=== PATIENT | female | born 1975 | race Caucasian/White ===

== ENCOUNTER 2016-11-27 11:10 | Inpatient (IN) | payer MEDICAID, OTHER ==
[2016-11-27] MEDS ORDERED: Charcoal ACTIVATED* 25 GM/120 ML BTL PO ONE (11:47)
[2016-11-27] MEDS ORDERED: NS 0.9% 1000 ML* 1,000 ML IV ONE (11:47)
--- NOTE | 2016-11-27 12:28 | RAD ---
Indication: Overdose. Single frontal view of the chest performed at 1202 hours was reviewed. Comparison is made with previous exam dated June 28, 2010. No mediastinal shift is noted. Heart is of normal size and configuration. Lung gallagher appear clear. IMPRESSION: NO ACTIVE CARDIOPULMONARY DISEASE IS NOTED.
[2016-11-27 12:50] LABS: Hematocrit 39 % (35-47); Mean Corpuscular HGB Conc 33 g/dl (31-36); Mean Corpuscular Hemoglobin 30 pg (27-31); Mean Corpuscular Volume 90 fL (80-97); Mean Platelet Volume 8 um3 (7.4-10.4); Red Blood Count 4.33 10^6/ul (4.0-5.4); Red Cell Distribution Width 15 % (10.5-15); White Blood Count 9.8 10^3/ul (3.5-10.8)
[2016-11-27 13:06] LABS: ALT 16 U/L (7-52); AST 19 U/L (13-39); Albumin 3.2 g/dL (3.2-5.2); Alkaline Phosphatase 46 U/L (34-104); Anion Gap 6 mmol/L (2-11); BUN/Creatinine Ratio 9.3 (8-20); Benzodiazepine Urine Screen None Detected (None Detect); Blood Urea Nitrogen 7 mg/dL (6-24); CO2 Carbon Dioxide 22 mmol/L (22-32); Calcium 8.6 mg/dL (8.6-10.3); Chloride 113 mmol/L (101-111); Creatine Kinase 37 U/L (10-223); EGFR African American 109.5 (>60); EGFR Non-African American 85.2 (>60); Globulin 3.7 g/dL (2-4); Glucose 105 mg/dL (70-100); Potassium 3.4 mmol/L (3.5-5.0); Sodium 141 mmol/L (133-145); Total Protein 6.9 g/dL (6.4-8.9)
[2016-11-27 13:07] LABS: Troponin I 0.01 ng/mL (<0.04)
[2016-11-27 13:16] LABS: Acetaminophen < 15 mcg/mL; Alcohol < 10 mg/dL (<10); Salicylate < 2.50 mg/dL (<30)
[2016-11-27 13:18] LABS: Urine Bilirubin Negative (Negative); Urine Glucose Negative (Negative); Urine Nitrite Negative (Negative)
[2016-11-27] MEDS ORDERED: LORazepam INJ* 2 MG/ML 1 ML VIAL IV PUSH ONE ×2 (15:26→16:00)
[2016-11-27] MEDS ORDERED: PEG 3000 GI LAVAGE* 1 GALLON PO ONE (15:37)
[2016-11-27] MEDS: KCL 20 MEQ/100 ML IVPREMIX* 20 MEQ/100 ML BAG IV SCH ×2 (15:45→20:49)
[2016-11-27] MEDS: NS 0.9% 1000 ML* 1,000 ML IV SCH ×2 (15:47→22:03)
[2016-11-27] MEDS ORDERED: Dextrose 50% Syringe 50 ML* 25 GM/50 ML SYRINGE IV PUSH PRN (16:23)
[2016-11-27] MEDS ORDERED: HYDROmorphone* 2 MG/ML 1 ML SYR IV SLOW PU ONE (16:27)
[2016-11-27] MEDS ORDERED: HYDROmorphone* 2 MG/ML 1 ML SYR ONE (16:29)
[2016-11-27] MEDS ORDERED: Lidocaine 2% PF * 5 ML VIAL ONE (16:29)
[2016-11-27] MEDS ORDERED: Lidocaine 2% JELLY* 6 ML JELLY TOPICAL ONE (16:30)
[2016-11-27] MEDS ORDERED: fentaNYL* 50 MCG/ML 2 ML VIAL (100 MCG VIAL) ONE (16:33)
[2016-11-27] MEDS ORDERED: Midazolam* 1 MG/ML 2 ML VIAL (2 MG) ONE (16:34)
[2016-11-27] MEDS ORDERED: Midazolam* 1 MG/ML 2 ML VIAL (2 MG) IV SLOW PU ONE (16:40)
[2016-11-27] MEDS ORDERED: fentaNYL* 50 MCG/ML 2 ML VIAL (100 MCG VIAL) IV SLOW PU ONE (16:40)
--- NOTE | 2016-11-27 16:42 | CONSULT ---
Consult Consult: S: Psychiatry is asked to emergently see this 41 y.o. white female with a history of substance use disorder for a capacity consult following her purposeful ingestion of over 60 tablets of oral antihypertensive medications. The primary team contacted poison control, who are recommending administration of Go-Lytely to minimize absorption of the overdosed agents, however, the patient, who took the pills in a suicide attempt, is actively suicidal and refusing treatment. On exam the patient is lying on her side in the ICU, appearing to be irritable and in some discomfort. Her statement is "Unless you want to give me a loaded 22 then don't bother talking to me." She endorses active suicidal intentions and is uncooperative. O: overweight white female in hospital gown lying on her side; poor eye contact , depressed and irritable with hostile, constricted affect; uncooperative; admits to SI; denies AH/VH; poor insight and impaired judgment A/P: Capacity: the patient lacks capacity to make informed medical decisions secondary to acute suicidal thinking. She is not able to rationally decline medically intervention because she is psychiatrically impaired. Psychiatry will continue to follow the case.
[2016-11-27] MEDS: Ondansetron INJ* 2 MG/ML VIAL IV PRN ×2 (16:43→22:13)
--- NOTE | 2016-11-27 16:56 | CONSULT ---
Consult Consult: CRITICAL CARE MEDICINE DATE: 11/27/16 TIME: 1600 REFERRING PROVIDER: Robert REASON/CHIEF COMPLAINT: combative post overdose, may need intubation for airway protection HISTORY OF PRESENT ILLNESS: 41 F with intentional od of long acting bb with bradycardia and posion control requesting golyteley prep with 2L. Pt remains suicidal and refusing to take medication and becoming argumentative and combative. Eloise plunkett also concluding pt does not hold capacity in order to decline tx. Pt treated with Ativan and medications. A bit more sedative but able to communicate well. Accepting of ngt as long as she can have pain meds etc so that it doesnt hurt. Explained we can attempt the procedure with moderate sedation and see if able to secure that way and achieve her treatment course. We discussed potential risks and benefits of the medications and still her risks post ingestion and potential needs for airway protection with potential intubation and mechanical ventilation. She expresses understanding. REVIEW OF SYSTEMS: As per HPI. Limited sec to acuity PAST MEDICAL HISTORY: As per HPI. HIV, HTN, lipids, obesity, panic disorder, depression MEDICATIONS: Reviewed. Unconfirmed ALLERGIES: Reviewed. SOCIAL HISTORY: Reviewed per records. FAMILY HISTORY: Noncontributory at present. PHYSICAL EXAM: Vital Signs: Reviewed. Neurologic: awake, declines to answer questions. HEENT: anicteric, perrl Cardiovascular: S1 S2 Respiratory: clear bl Abdomen: soft, obese, nt Extremities: no edema Access: piv LABS: Reviewed IMAGING: ECG NSR with nonsp t abn similar to ecg 2015. MEDICATIONS: current reviewed. ASSESSMENT: 41 F with overdose of extended release bb and needing tx with golytley prep but refusing therapy, and at risk to self-refusing treatment with active suicidal desire and now with potential for airway compromise and aspiration with tx needs. PLAN: Needs tx to combat her bb od and concern over the next 24hours for symptomology given the extended release. Pt accepting attempt at ngt now and placed via moderate sedation. Neurologic: utilize benzos for anti-anxiety needs. Cardiovascular: Perfusing. IVF. No pressor needs at present but if sx hypotention and or bradycardia would combat early and may even need vasopressin. Respiratory: vent bundle. Supportive care Gastrointestinal: ngt placed. decontamination with golytely. Poison control f/u Renal/Metabolic: f/u for electrolyte abnormalities, especially post prep Infectious Disease: no infective burden. Chronic hiv Hematology: stable. Endocrine: f/u bg Musculoskeletal: f/u needs Psych/Social: psych f/u Supportive and preventative care as ordered. Disposition: ICU care Code Status: Full Critical Care Time: 40min D/w Dr. Robert Hagan, DO
--- NOTE | 2016-11-27 18:02 | RAD ---
INDICATION: Nasogastric tube placement COMPARISON: Chest x-ray dated November 27, 2016 acquired at 1101 hours TECHNIQUE: Single AP portable view of the chest was obtained on November 27, 2016 at 1617 hours. FINDINGS: Image quality is compromised due to the relative inferiority of a portable chest x-ray. There is been interval placement of a gastric tube with the tip terminating below the level the diaphragm at the expected location of the gastric fundus. The lungs appear adequately aerated on this limited portable chest x-ray. IMPRESSION: Interval placement of a gastric tube with the tip terminating below the diaphragm overlying the expected location of the gastric fundus.
[2016-11-27] MEDS: Insulin LISPRO* 1 UNITS UNIT SUBCUT SCH (18:11)
[2016-11-27] MEDS: LORazepam INJ* 2 MG/ML 1 ML VIAL IV PUSH PRN (19:37)
[2016-11-27] MEDS: Heparin VIAL(*) 5000 UNITS/ML VIAL (FIVE THOUSAND) SUBCUT SCH (20:14)
--- NOTE | 2016-11-27 21:11 | ED ---
Jinny Tan Alfonso, scribed for Viktoriya Goldman MD on 11/27/16 at 1224 . Substance Abuse/Use - HPI Summary HPI Summary: This patient is a 41 year old F BIBA with police 941 to [facility] for a possible substance overdose at 1030 today. Per undercover home school liaison officer, she was in a closet with a knife to her neck and holding 2 bottles of Metoprolol and 1 bottle of Verapamil. aeronautical engineering officer states that pills were coming out of her mouth and he does not know how many were swallowed. Pt states she did this because I dont want to live no more. Pt rates the pain 0/10 in severity. Symptoms aggravated by recent arrest and alleviated by nothing. PMHx of depression, anxiety, PTSD, and borderline personality disorder. Reports recently abusing cocaine. - History Of Current Complaint Chief Complaint: EDMentalHealth Stated Complaint: 941/OVERDOSE Time Seen by Provider: 11/27/16 11:46 Hx Obtained From: Patient ?: No Onset/Duration of Drug/ETOH Abuse: Minutes - 1030 today Ingestion History: Type/Name Of Drug - 2 bottles of Metoprolol and 1 bottle of Verapamil, Amount Ingested - 3 bottles, Approximate Time Of Ingestion - 1030 Overdose Characteristics: Oral Severity Initially: Severe Severity Currently: Severe Character: Depressed Aggravating Factor(s): Recent Stress - Arrest Alleviating Factor(s): Nothing Associated Signs And Symptoms: Intentional Ingestion Related Hx: Suicidal, Suicidal: Prior Attempt(s), Recent Stressors, Suicidal: Gesture - Allergies/Home Medications Allergies/Adverse Reactions: Allergies Allergy/AdvReac Type Severity Reaction Status Date / Time No Known Allergies Allergy Verified 10/10/14 23:13 Home Medications: Home Medications Acyclovir OINT 5%(NF) [Zovirax Oint 5%(NF)] 1 applic TOPICAL QID PRN 11/27/16 [ History Confirmed 11/27/16] Albuterol HFA INHALER* [Ventolin HFA Inhaler*] 2 puff INH Q6H PRN 11/27/16 [ History Confirmed 11/27/16] Alprazolam [Alprazolam ER] 1 - 2 mg PO DAILY PRN 11/27/16 [History Confirmed 03/06] Aspirin EC Low Dose* [Ecotrin EC Low Dose 81 MG*] 81 mg PO DAILY 11/27/16 [ History Confirmed 11/27/16] Atorvastatin* [Lipitor*] 20 mg PO DAILY 11/27/16 [History Confirmed 11/27/16] Enalapril TAB* [Vasotec TAB*] 5 mg PO DAILY 11/27/16 [History Confirmed 11/27/16 ] Hydrochlorothiazide TAB* [Hydrodiuril TAB*] 12.5 mg PO DAILY 11/27/16 [History Confirmed 11/27/16] Levothyroxine TAB* [Synthroid TAB*] 100 mcg PO DAILY 11/27/16 [History Confirmed 11/27/16] Metoprolol Succinate XL TAB* [Toprol XL TAB*] 100 mg PO DAILY 11/27/16 [History Confirmed 11/27/16] ValACYclovir (*) [Valtrex 1 GM(*)] 1 gm PO BID PRN 11/27/16 [History Confirmed 11/27/16] Venlafaxine EXT RELEASE CAP* [Effexor Xr CAP*] 75 mg PO DAILY 11/27/16 [History Confirmed 11/27/16] clonazePAM TAB(*) [KlonoPIN TAB(*)] 1 mg PO BID PRN 11/27/16 [History Confirmed 11/27/16] oxyCODONE/Acetamin 10/325(NF) [Percocet 10/325 (NF)] 1 tab PO Q8HR PRN 11/27/16 [History Confirmed 11/27/16] PMH/Surg Hx/FS Hx/Imm Hx Endocrine/Hematology History: Reports: Hx Diabetes, Hx Thyroid Disease, Other Endocrine/Hematological Disorders - hiv Cardiovascular History: Reports: Hx Hypercholesterolemia, Hx Hypertension, Hx Valvular Heart Disease Respiratory History: Denies: Hx Asthma, Hx Chronic Obstructive Pulmonary Disease (COPD) GI History: Reports: Hx Ulcer Psychiatric History: Reports: Hx Depression, Other Psychiatric Issues/Disorders - borerline peronsality disorder - Surgical History Surgery Procedure, Year, and Place: , appendectomy Infectious Disease History: Reports: Hx Human Immunodeficiency Virus (HIV) Denies: Hx Clostridium Difficile, Hx Hepatitis, Hx of Known/Suspected MRSA, Hx Shingles, Hx Tuberculosis, Hx Known/Suspected VRE, Hx Known/Suspected VRSA, History Other Infectious Disease, Traveled Outside the [place] in Last 30 Days - Family History Known Family History: Positive: Cardiac Disease - Social History Alcohol Use: None Hx Substance Use: Yes Substance Use Type: Reports: Cocaine Smoking Status (MU): Heavy Every Day Tobacco Smoker Type: Cigarettes Amount Used/How Often: 1 PK DAY Review of Systems Negative: Fever Cardiovascular: Negative Respiratory: Negative Gastrointestinal: Negative Neurological: Other - Positive OD, SI Positive: Depressed All Other Systems Reviewed And Are Negative: Yes Physical Exam Triage Information Reviewed: Yes Vital Signs On Initial Exam: Initial Vitals Temp Pulse Resp BP Pulse Ox 96.5 F 64 29 112/77 94 11/27/16 11:27 11/27/16 11:27 11/27/16 11:27 11/27/16 11:27 11/27/16 11:27 Vital Signs Reviewed: Yes Appearance: Positive: Well-Appearing, No Pain Distress, Well-Nourished Skin: Positive: Warm, Skin Color Reflects Adequate Perfusion Head/Face: Positive: Normal Head/Face Inspection Eyes: Positive: Conjunctiva Clear ENT: Positive: Normal ENT inspection Neck: Positive: Supple Respiratory/Lung Sounds: Positive: Clear to Auscultation, Breath Sounds Present Cardiovascular: Positive: RRR Abdomen Description: Positive: Nontender, No Organomegaly, Soft Bowel Sounds: Positive: Present Musculoskeletal: Positive: Strength/ROM Intact Neurological: Positive: Sensory/Motor Intact, Alert, Oriented to Person Place, Time, CN Intact II-III, Speech Normal. Negative: Facial Droop, Focal Deficit @ , Slurred Speech Psychiatric: Positive: Depressed - Jyoti Coma Scale Coma Scale Total: 15 Diagnostics - Vital Signs Vital Signs Temp Pulse Resp BP Pulse Ox 11/27/16 11:27 96.5 F 64 29 112/77 94 - Laboratory Lab Results: Lab Results 11/27/16 11/27/16 11/27/16 Range/Units 12:31 12:31 12:31 WBC 9.8 (3.5-10.8) 10^3/ul RBC 4.33 (4.0-5.4) 10^6/ul Hgb 13.0 (12.0-16.0) g/dl Hct 39 (35-47) % MCV 90 (80-97) fL MCH 30 (27-31) pg MCHC 33 (31-36) g/dl RDW 15 (10.5-15) % Plt Count 265 (150-450) 10^3/ul MPV 8 (7.4-10.4) um3 Neut % (Auto) 70.5 (38-83) % Lymph % (Auto) 21.5 L (25-47) % [place] % (Auto) 5.9 (1-9) % Eos % (Auto) 1.5 (0-6) % Baso % (Auto) 0.6 (0-2) % Absolute Neuts (auto) 6.9 (1.5-7.7) 10^3/ul Absolute Lymphs (auto) 2.1 (1.0-4.8) 10^3/ul Absolute Monos (auto) 0.6 (0-0.8) 10^3/ul Absolute Eos (auto) 0.1 (0-0.6) 10^3/ul Absolute Basos (auto) 0.1 (0-0.2) 10^3/ul Absolute Nucleated RBC 0.01 10^3/ul Nucleated RBC % 0.1 Sodium 141 (133-145) mmol/L Potassium 3.4 L (3.5-5.0) mmol/L Chloride 113 H (101-111) mmol/L Carbon Dioxide 22 (22-32) mmol/L Anion Gap 6 (2-11) mmol/L BUN 7 (6-24) mg/dL Creatinine 0.75 (0.51-0.95) mg/dL Est GFR ( Amer) 109.5 (>60) Est GFR (Non-Af Amer) 85.2 (>60) BUN/Creatinine Ratio 9.3 (8-20) Glucose 105 H (70-100) mg/dL Lactic Acid (0.5-2.0) mmol/L Calcium 8.6 (8.6-10.3) mg/dL Total Bilirubin 0.30 (0.2-1.0) mg/dL AST 19 (13-39) U/L ALT 16 (7-52) U/L Alkaline Phosphatase 46 (34-104) U/L Total Creatine Kinase 37 (10-223) U/L Troponin I 0.01 (<0.04) ng/mL Total Protein 6.9 (6.4-8.9) g/dL Albumin 3.2 (3.2-5.2) g/dL Globulin 3.7 (2-4) g/dL Albumin/Globulin Ratio 0.9 L (1-3) TSH 2.00 (0.34-5.60) mcIU/mL Beta HCG, Quant < 0.60 mIU/mL Urine Color Yellow Urine Appearance Cloudy Urine pH 6.0 (5-9) Ur Specific [place] 1.024 (1.010-1.030) Urine Protein 2+(100 mg/dl) H (Negative) Urine Ketones Negative (Negative) Urine Blood Negative (Negative) Urine Nitrate Negative (Negative) Urine Bilirubin Negative (Negative) Urine Urobilinogen Negative (Negative) Ur Leukocyte Esterase Negative (Negative) Urine Glucose Negative (Negative) Salicylates < 2.50 (<30) mg/dL Urine Opiates Screen (None Detect) Acetaminophen < 15 mcg/mL Ur Barbiturates Screen (None Detect) Ur Phencyclidine Scrn (None Detect) Ur Amphetamines Screen (None Detect) U Benzodiazepines Scrn (None Detect) Urine Cocaine Screen (None Detect) U Cannabinoids Screen (None Detect) Serum Alcohol < 10 (<10) mg/dL 11/27/16 11/27/16 Range/Units 12:31 12:31 WBC (3.5-10.8) 10^3/ul RBC (4.0-5.4) 10^6/ul Hgb (12.0-16.0) g/dl Hct (35-47) % MCV (80-97) fL MCH (27-31) pg MCHC (31-36) g/dl RDW (10.5-15) % Plt Count (150-450) 10^3/ul MPV (7.4-10.4) um3 Neut % (Auto) (38-83) % Lymph % (Auto) (25-47) % [place] % (Auto) (1-9) % Eos % (Auto) (0-6) % Baso % (Auto) (0-2) % Absolute Neuts (auto) (1.5-7.7) 10^3/ul Absolute Lymphs (auto) (1.0-4.8) 10^3/ul Absolute Monos (auto) (0-0.8) 10^3/ul Absolute Eos (auto) (0-0.6) 10^3/ul Absolute Basos (auto) (0-0.2) 10^3/ul Absolute Nucleated RBC 10^3/ul Nucleated RBC % Sodium (133-145) mmol/L Potassium (3.5-5.0) mmol/L Chloride (101-111) mmol/L Carbon Dioxide (22-32) mmol/L Anion Gap (2-11) mmol/L BUN (6-24) mg/dL Creatinine (0.51-0.95) mg/dL Est GFR ( Amer) (>60) Est GFR (Non-Af Amer) (>60) BUN/Creatinine Ratio (8-20) Glucose (70-100) mg/dL Lactic Acid 1.4 (0.5-2.0) mmol/L Calcium (8.6-10.3) mg/dL Total Bilirubin (0.2-1.0) mg/dL AST (13-39) U/L ALT (7-52) U/L Alkaline Phosphatase (34-104) U/L Total Creatine Kinase (10-223) U/L Troponin I (<0.04) ng/mL Total Protein (6.4-8.9) g/dL Albumin (3.2-5.2) g/dL Globulin (2-4) g/dL Albumin/Globulin Ratio (1-3) TSH (0.34-5.60) mcIU/mL Beta HCG, Quant mIU/mL Urine Color Urine Appearance Urine pH (5-9) Ur Specific [place] (1.010-1.030) Urine Protein (Negative) Urine Ketones (Negative) Urine Blood (Negative) Urine Nitrate (Negative) Urine Bilirubin (Negative) Urine Urobilinogen (Negative) Ur Leukocyte Esterase (Negative) Urine Glucose (Negative) Salicylates (<30) mg/dL Urine Opiates Screen None detected (None Detect) Acetaminophen mcg/mL Ur Barbiturates Screen None detected (None Detect) Ur Phencyclidine Scrn None detected (None Detect) Ur Amphetamines Screen None detected (None Detect) U Benzodiazepines Scrn None detected (None Detect) Urine Cocaine Screen Presumptive positive H (None Detect) U Cannabinoids Screen None detected (None Detect) Serum Alcohol (<10) mg/dL Result Diagrams: 11/27/16 12:31 11/27/16 12:31 Lab Statement: Any lab studies that have been ordered have been reviewed, and results considered in the medical decision making process. - Radiology CXR Radiology Interpretation Completed By: Radiologist - NO ACTIVE CARDIOPULMONARY DISEASE IS NOTED. - EKG 1133 Cardiac Rate: NL - BPM 62 EKG Rhythm: Sinus Rhythm EKG Interpretation: Normal AV IV. Normal QTc. Normal axis. LVH criteria. No acute changes. EKG Comparison: No Significant Change - 10/12/2015 Re-Evaluation - Re-Evaluation First Eval Re-Evaluation Time: 14:13 Comment: Pt is not in distress. Pt was able to take charcoal without issue. Course/Dx - Course Assessment/Plan: 41 year old F JORJE with police 941 to the ED for a possible substance overdose at 1030 today. Per undercover home school liaison officer, she was in a closet with a knife to her neck and holding 2 bottles of Metoprolol and 1 bottle of Verapamil. aeronautical engineering officer states that pills were coming out of her mouth and he does not know how many were swallowed. CXR reveals NO ACTIVE CARDIOPULMONARY DISEASE IS NOTED. An EKG reveals NSR with LVH criteria. We discussed patient care with Dr. Puentes and they recommended admission under their care. Pt is agreeable with this plan. Pt medications reviewed this visit. Police are with pt throughout her ED stay. Poison control was consulted, recommended charcoal and colon cleanse with GoLitely. - Diagnoses Differential Diagnosis/HQI/PQRI: Positive: Depression, Suicidal Risk Provider Diagnoses: Deliberate medication overdose, Suicide gesture - Physician Notifications Discussed Care Of Patient With: Lizbeth Puentes Time Discussed With Above Provider: 13:24 Instructed by Provider To: Admit As Inpatient - Consulted Dr. Puentes ( Hospitalist) who agrees to admit. - Critical Care Time Critical Care Time: 30-74 min Discharge - Discharge Plan Condition: Stable Disposition: ADMITTED TO [facility] documentation as recorded by the Jinny alford Alfonso accurately reflects the service I personally performed and the decisions made by , Viktoriya Goldman MD.
--- NOTE | 2016-11-27 22:12 | HP ---
CC: Dr. Maria Isabel Perez * HISTORY AND PHYSICAL: DATE OF ADMISSION: 11/27/16 CHIEF COMPLAINT: Intentional overdose. HISTORY OF PRESENT ILLNESS: Ms. Marie is a 41-year-old female who has a history of hypertension, hyper-lipidemia, hypothyroidism, type 2 diabetes and HIV, who presents to the emergency room after intentionally overdosing on metoprolol XL and enalapril. The patient was very cryptic in giving history; however, the ER was able to obtain the history that the patient was being picked up for a warrant by patrol officers when she was witnessed to overdose on the full bottle of metoprolol XL and enalapril. The patient reportedly states that she spit out approximately 15 tablets of the metoprolol XL and she believes she only took probably 45 of these tablets. She states that she took the entire bottle of the enalapril. The patient stated to me when asked why she took the tablets, she stated that she was trying to kill herself and she is still trying. The patient states that she has had a history of multiple suicide attempts in the past. At this point, she does not want to live and she was refusing to comply with the recommendation from Poison Control. PAST MEDICAL HISTORY: 1. Hypertension. 2. Hyperlipidemia. 3. Hypothyroidism. 4. Type 2 diabetes. 5. HIV. PAST SURGICAL HISTORY: None. ALLERGIES: No known drug allergies. MEDICATIONS: 1. Metoprolol XL 100 mg p.o. daily. 2. Percocet 10/325 one tab p.o. q.8 hours p.r.n. pain. 3. Clonazepam 1 mg p.o. twice daily p.r.n. anxiety. 4. Ventolin two puffs inhaled q.i.d. p.r.n. shortness of breath. 5. Acyclovir 5% cream applied to the affected area 4 times daily. 6. Levothyroxine 100 mcg p.o. daily. 7. Venlafaxine 150 mg p.o. daily. 8. Lipitor 20 mg p.o. daily. 9. Nitroglycerin 0.4 mg SL q.5 minutes p.r.n. chest pain. 10. Hydrochlorothiazide 12.5 mg p.o. daily. 11. Metformin 500 mg p.o. daily. 12. Aspirin 81 mg p.o. daily. 13. Cyclobenzaprine 5 mg p.o. q.8 hours p.r.n. spasm. 14. Enalapril 5 mg p.o. daily. FAMILY HISTORY: Mom is living. Her health is unknown. Dad is also living. He has had bypass surgery. SOCIAL HISTORY: The patient smokes approximately one pack of cigarettes per day and has done so for approximately 10 years. She denies any routine use of alcohol. However, she states over the last couple of weeks, she has been drinking occasionally. She admits to using cocaine over the last couple of weeks, but states that she has been sober for the last 4 days. She states that she is engaged. She has four children; none of which live with her. The patient is unwilling to choose a healthcare proxy at this time, stating that she does not want anyone making medical decisions for her. REVIEW OF SYSTEMS: The patient denies any fevers or chills. She states she has not eaten or slept in several days. She is unable to tell me why this is the case. She denies any chest pain, admits to chronic shortness of breath, but she states this is her baseline level. She admits to cough and bringing up green sputum. She denies any abdominal pain, nausea, vomiting, constipation, or diarrhea. She denies dysuria. No focal neurological deficits. No headaches. PHYSICAL EXAMINATION GENERAL: The patient is a young female, lying in the bed making poor eye contact, but in no acute distress. VITAL SIGNS: Blood pressure 121/85, pulse 67, respirations 29, temp 98.2, O2 sat 96% on room air. HEENT: Pupils are equal, they are round. Extraocular muscles are intact. Oropharynx is clear. Oral mucosa is moist. The patient's tongue is black from the ingested activated charcoal she had previously. There is no submandibular, cervical, or supraclavicular adenopathy. Thyroid is not enlarged. No thyroid nodules are noted. PULMONARY: Lungs are clear to auscultation bilaterally. CARDIAC: Normal S1, S2. Regular rate and rhythm. I do not appreciate any murmurs. There is no lower extremity edema. ABDOMEN: Bowel sounds are present. Abdomen is soft, nontender, nondistended. MUSCULOSKELETAL: There is no cyanosis or clubbing of the digits. There is full active range of motion of the left upper extremity and bilateral lower extremities. Right wrist is in a handcuff and she is shackled to the bed. SKIN: Warm and dry. There are no rashes. The patient has fresh cuts to her left forearm and right thigh. NEUROLOGIC: Cranial nerves II through XII appeared to be grossly intact. Sensation is intact to light touch throughout. Strength is 5/5 and symmetric in the lower extremities and in the left upper extremity. Right upper extremity is not tested. PSYCH: The patient is alert. She is oriented x3. The patient has poor eye contact. She has a depressed affect. DIAGNOSTIC STUDIES/LAB DATA: WBC 9.8, hemoglobin 13.0, hematocrit 39, platelets 265. Sodium 141, potassium 3.4, chloride 113, CO2 22, BUN 7, creatinine 0.75, glucose 105, lactic acid 1.4, calcium 8.6. AST 19, ALT 6, alkaline phos 46, CPK 37. Troponin 0.01. Albumin 3.2. TSH 2.0. Urinalysis reveals cloudy urine with specific gravity of 1.024 and otherwise negative. Salicylate less than 2.5. Tylenol less than 15. Alcohol less than 10. Urine drug screen positive for cocaine. EKG revealed normal sinus rhythm without any acute ST-T wave abnormalities. Chest x-ray - no acute cardiopulmonary disease noted. ASSESSMENT AND PLAN: Ms. Marie is a 41-year-old female with a history of multiple previous suicide attempts since the age of 12, who presents to the emergency room after ingesting intentionally approximately 45 tablets of metoprolol XL 100 mg a piece and 30 tablets of enalapril 5 mg a piece in an attempt to kill herself. 1. Intentional metoprolol and enalapril overdose. Given the ingestion of the metoprolol XL, Poison Control has recommended whole bowel irrigation. They have recommended that an NG tube to be placed and the patient be started on GoLYTELY initially at 500 mL per hour increasing by 50 mL every 20 minutes until at a rate of 1500 - 2000 mL per hour x 4 to 6 hours or until the stool effluent is clear. The patient's stool will need to be monitored for tablets. The patient may need glucagon for beta roxanna toxicity. At this point, the patient is refusing to have the NG tube placed; however, after brief consultation with Psychiatry, it was deemed that the patient does not have capacity to refuse this treatment given her current situation. The patient is still refusing to have the NG tube placed, and therefore as the patient is directly potentially causing harm to herself, Ativan 4 mg IV x1 will be given now. It is possible that she may require intubation if she becomes too drowsy and unable to protect her airway. We will ask the patient to see if she will comply with having the NG tube placed willingly; however, if not, she will likely need to be restrained and have the NG tube placed and the GoLYTELY administered. 2. Hypertension. At this point, the patient's blood pressure is under good control. Given the enalapril and metoprolol XL ingestion, we will need to monitor her blood pressure closely. She will be placed on normal saline at 150 mL per hour from now. 3. The patient states that she has HIV. She is not on any medications for this. I will go ahead and order HIV viral load. A CD4 count will also be obtained. 4. Hypothyroidism. The patient will be maintained on IV Synthroid at this time given the bowel irrigation. 5. Type 2 diabetes. The patient will have glucoses checked every 6 hours and will be placed on a lispro sliding scale. With the bowel irrigation, we will need to ensure that her sugars remain up and that her volume status is acceptable. 6. DVT prophylaxis. According to the Adult Thrombosis Prophylaxis Risk Factor Assessment Guide, the patient has a total risk factor score of 2, making her moderate risk. She will be placed on heparin 5000 units subcutaneous q.12 hours. 7. Code status is full. TIME SPENT: 65 minutes were spent admitting this patient. [id number]/[facility] #: [id number] JUDITH
[2016-11-28] MEDS: Insulin LISPRO* 1 UNITS UNIT SUBCUT SCH ×4 (00:16→18:32)
[2016-11-28] MEDS: LORazepam INJ* 2 MG/ML 1 ML VIAL IV PUSH PRN (00:53)
[2016-11-28] MEDS ORDERED: Furosemide IV* 10 MG/ML VIAL (40 MG) IV ONE (02:00)
[2016-11-28] MEDS ORDERED: Furosemide IV* 10 MG/ML VIAL (40 MG) ONE (02:00)
--- NOTE | 2016-11-28 02:06 | PN ---
Progress Note - Progress Note Date of Service: 11/28/16 Note: Paged for increase work of breathing and hypoxia. Patient now on 15L oxymask. Repeat CXR shows findings consistent with pulmonary edema. Hold IVFs for now and Lasix 40 mg given. Concern with NGT in place CPAP or hiflow would not be effective. Golytely also at lower rate of 1000 mg/hr. If no improvement in respiratory status will have to hold NGT and place on CPAP.
[2016-11-28 05:52] LABS: Hematocrit 37 % (35-47); Hemoglobin 12.7 g/dl (12.0-16.0); Mean Corpuscular HGB Conc 34 g/dl (31-36); Mean Corpuscular Hemoglobin 30 pg (27-31); Mean Corpuscular Volume 90 fL (80-97); Mean Platelet Volume 8 um3 (7.4-10.4); Red Blood Count 4.18 10^6/ul (4.0-5.4); Red Cell Distribution Width 14 % (10.5-15); White Blood Count 8.6 10^3/ul (3.5-10.8)
[2016-11-28 06:08] LABS: Albumin 3.4 g/dL (3.2-5.2); Calcium 8.3 mg/dL (8.6-10.3); EGFR African American 109.5 (>60); EGFR Non-African American 85.2 (>60); Globulin 3.5 g/dL (2-4); Potassium 3.3 mmol/L (3.5-5.0); Total Bilirubin 0.4 mg/dL (0.2-1.0); Total Protein 6.9 g/dL (6.4-8.9)
[2016-11-28] MEDS: Levothyroxine INJ* 100 MCG/5 ML VIAL IV SCH (06:19)
--- NOTE | 2016-11-28 07:32 | RAD ---
HISTORY: Hypoxic COMPARISONS: November 27, 2016 VIEWS:1: Single frontal portable view of the chest at 1:35 AM FINDINGS: LINES AND TUBES: A gastric tube is noted. The tail is not visible secondary to technique and shielding, but is below the diaphragm. CARDIOMEDIASTINAL SILHOUETTE: The cardiomediastinal silhouette is normal for portable technique. PLEURA: The costophrenic angles are sharp. No pleural abnormalities are noted. LUNG PARENCHYMA: There is mild diffuse reticular pattern of opacification ABDOMEN: The upper abdomen is clear. There is no subphrenic gas. BONES AND SOFT TISSUES: No bone or soft tissue abnormalities are noted. IMPRESSION: LINES AND TUBES ABOVE. MILD DIFFUSE INTERSTITIAL OPACIFICATION, THE DIFFERENTIAL INCLUDES PULMONARY INTERSTITIAL EDEMA
--- NOTE | 2016-11-28 08:29 | PN ---
Subjective Date of Service: 11/28/16 Interval History: Pt is very groggy this AM. She states her breathing is difficult but then points to her neck stating that is where she feels pain/difficulty to breath. She denies any other pain but she is difficult to have a conversation with due to her somnolence. Family History: Unchanged from Admission Social History: Unchanged from Admission Past Medical History: Unchanged from Admission Objective Active Medications: Dextrose (D50w Syringe 50 Ml*) 12.5 gm IV PUSH .FOR FS < 60 - SS PRN PRN Reason: FS < 60 Heparin Sodium (Porcine) (Heparin Vial(*)) 5,000 units SUBCUT Q12HR [facility] Last Admin: 11/27/16 20:14 Dose: 5,000 units Sodium Chloride (Ns 0.9% 1000 Ml*) 1,000 mls @ 150 mls/hr IV PER RATE [facility] Last Admin: 11/27/16 22:03 Dose: 150 mls/hr Potassium Chloride (Potassium Chloride 20 Meq/100 Ml Ivpremix*) 20 meq in 100 mls @ 50 mls/hr IV Q2H [facility] Stop: 11/28/16 11:59 Insulin Human Lispro (Humalog*) 0 units SUBCUT Q6HR EZRA PRN Reason: Protocol Last Admin: 11/28/16 06:19 Dose: Not Given Levothyroxine Sodium (Synthroid Inj*) 50 mcg IV 0600 [facility] Last Admin: 11/28/16 06:19 Dose: 50 mcg Lorazepam (Ativan Inj*) 2 mg IV PUSH Q4H PRN PRN Reason: ANXIETY Last Admin: 11/28/16 00:53 Dose: 2 mg Ondansetron HCl (Zofran Inj*) 4 mg IV Q6H PRN PRN Reason: NAUSEA Last Admin: 11/27/16 22:13 Dose: 4 mg Vital Signs 11/27/16 11/27/16 11/27/16 13:30 14:00 14:30 Temperature Pulse Rate 66 64 Respiratory 18 30 19 Rate Blood Pressure 125/90 130/79 (mmHg) O2 Sat by Pulse 96 96 Oximetry 11/27/16 11/27/16 11/27/16 15:00 15:02 15:05 Temperature Pulse Rate 66 71 Respiratory 20 31 23 Rate Blood Pressure 110/76 (mmHg) O2 Sat by Pulse 93 98 Oximetry 11/27/16 11/27/16 11/27/16 15:08 15:15 15:30 Temperature 97.9 F Pulse Rate 67 66 68 Respiratory 19 28 22 Rate Blood Pressure 110/76 112/79 121/76 (mmHg) O2 Sat by Pulse 97 97 95 Oximetry 11/27/16 11/27/16 11/27/16 15:44 15:45 15:59 Temperature Pulse Rate 67 Respiratory 30 29 17 Rate Blood Pressure 121/85 (mmHg) O2 Sat by Pulse 96 Oximetry 11/27/16 11/27/16 11/27/16 16:00 16:14 16:15 Temperature 98.2 F Pulse Rate 66 66 Respiratory 24 28 19 Rate Blood Pressure 123/91 123/80 (mmHg) O2 Sat by Pulse 95 96 Oximetry 11/27/16 11/27/16 11/27/16 16:32 16:34 16:44 Temperature Pulse Rate 70 Respiratory 26 20 14 Rate Blood Pressure 135/110 (mmHg) O2 Sat by Pulse 97 Oximetry 11/27/16 11/27/16 11/27/16 16:48 16:51 16:54 Temperature Pulse Rate 62 65 63 Respiratory 17 15 15 Rate Blood Pressure 132/99 140/110 135/93 (mmHg) O2 Sat by Pulse 95 92 85 Oximetry 11/27/16 11/27/16 11/27/16 16:57 17:00 17:03 Temperature Pulse Rate 62 70 65 Respiratory 14 14 12 Rate Blood Pressure 138/106 143/94 131/102 (mmHg) O2 Sat by Pulse 95 91 96 Oximetry 11/27/16 11/27/16 11/27/16 17:15 17:30 17:45 Temperature Pulse Rate 61 61 66 Respiratory 15 17 16 Rate Blood Pressure 130/105 127/94 (mmHg) O2 Sat by Pulse 99 100 91 Oximetry 11/27/16 11/27/16 11/27/16 17:48 18:00 18:15 Temperature Pulse Rate 59 Respiratory 11 15 Rate Blood Pressure 138/97 131/98 (mmHg) O2 Sat by Pulse 97 99 99 Oximetry 11/27/16 11/27/16 11/27/16 18:28 18:30 18:45 Temperature Pulse Rate Respiratory 13 12 13 Rate Blood Pressure 122/98 131/88 (mmHg) O2 Sat by Pulse 98 99 Oximetry 11/27/16 11/27/16 11/27/16 19:00 19:15 19:30 Temperature Pulse Rate 58 64 Respiratory 13 16 Rate Blood Pressure 123/92 137/93 117/95 (mmHg) O2 Sat by Pulse 98 96 Oximetry 11/27/16 11/27/16 11/27/16 19:37 19:45 19:55 Temperature Pulse Rate 60 62 Respiratory 22 14 18 Rate Blood Pressure 122/89 126/81 (mmHg) O2 Sat by Pulse 96 99 Oximetry 11/27/16 11/27/16 11/27/16 20:00 20:15 21:00 Temperature Pulse Rate 60 Respiratory 17 16 Rate Blood Pressure 122/90 120/88 (mmHg) O2 Sat by Pulse 100 94 Oximetry 11/27/16 11/27/16 11/27/16 21:35 21:45 22:00 Temperature Pulse Rate Respiratory 17 18 19 Rate Blood Pressure 120/94 117/96 119/90 (mmHg) O2 Sat by Pulse 94 93 91 Oximetry 11/27/16 11/27/16 11/27/16 22:15 23:00 23:21 Temperature Pulse Rate Respiratory 26 24 Rate Blood Pressure 126/101 123/84 (mmHg) O2 Sat by Pulse 94 90 Oximetry 11/27/16 11/27/16 11/28/16 23:30 23:45 00:00 Temperature 98.6 F 98.9 F 98.9 F Pulse Rate Respiratory 23 24 21 Rate Blood Pressure 125/88 131/103 (mmHg) O2 Sat by Pulse 92 93 94 Oximetry 11/28/16 11/28/16 11/28/16 00:01 00:07 00:30 Temperature 98.9 F 98.9 F 98.8 F Pulse Rate 68 73 Respiratory 22 23 27 Rate Blood Pressure 133/98 130/92 (mmHg) O2 Sat by Pulse 94 95 98 Oximetry 11/28/16 11/28/16 11/28/16 00:53 01:00 01:30 Temperature 99.1 F 99.1 F Pulse Rate 71 Respiratory 28 28 32 Rate Blood Pressure 124/84 120/82 (mmHg) O2 Sat by Pulse 93 92 Oximetry 11/28/16 11/28/16 11/28/16 02:00 02:23 02:30 Temperature 98.9 F 98.8 F Pulse Rate Respiratory 33 38 28 Rate Blood Pressure 139/108 132/80 (mmHg) O2 Sat by Pulse 91 94 Oximetry 11/28/16 11/28/16 11/28/16 03:00 03:30 04:00 Temperature 98.9 F 99.3 F 99.0 F Pulse Rate Respiratory 21 27 25 Rate Blood Pressure 121/86 122/83 109/81 (mmHg) O2 Sat by Pulse 98 98 96 Oximetry 11/28/16 11/28/16 11/28/16 04:30 05:00 05:30 Temperature 99.2 F 99.2 F Pulse Rate Respiratory 26 22 Rate Blood Pressure 110/72 121/74 128/87 (mmHg) O2 Sat by Pulse 95 95 Oximetry 11/28/16 11/28/16 11/28/16 05:45 05:47 06:00 Temperature 99.4 F Pulse Rate 70 Respiratory 22 26 Rate Blood Pressure (mmHg) O2 Sat by Pulse 96 97 Oximetry Oxygen Devices in Use Now: Nasal Cannula - 97%-4L Appearance: Young overweight female lying in bed sleeping, awakens to light touch and voice, NAD Eyes: No Scleral Icterus Ears/Nose/Mouth/Throat: Mucous Membranes Moist, - - NG tube present Respiratory: Symmetrical Chest Expansion and Respiratory Effort, Clear to Auscultation - diminished breath sounds in all lung gallagher, no crackles noted Cardiovascular: NL Sounds; No Murmurs; No JVD, RRR, No Edema Abdominal: NL Sounds; No Tenderness; No Distention, - - rectal tube in place Extremities: No Clubbing, Cyanosis Skin: No Rash or Ulcers, No Nodules or Sclerosis, - - cuts to L forearm and R thigh noted Neurological: - - somnolent Result Diagrams: 11/28/16 05:34 11/28/16 05:34 Additional Lab and Data: Lab Results 11/27/16 11/27/16 11/27/16 Range/Units 12:31 12:31 12:31 WBC 9.8 (3.5-10.8) 10^3/ul RBC 4.33 (4.0-5.4) 10^6/ul Hgb 13.0 (12.0-16.0) g/dl Hct 39 (35-47) % MCV 90 (80-97) fL MCH 30 (27-31) pg MCHC 33 (31-36) g/dl RDW 15 (10.5-15) % Plt Count 265 (150-450) 10^3/ul MPV 8 (7.4-10.4) um3 Neut % (Auto) 70.5 (38-83) % Lymph % (Auto) 21.5 L (25-47) % Faulkner % (Auto) 5.9 (1-9) % Eos % (Auto) 1.5 (0-6) % Baso % (Auto) 0.6 (0-2) % Absolute Neuts (auto) 6.9 (1.5-7.7) 10^3/ul Absolute Lymphs (auto) 2.1 (1.0-4.8) 10^3/ul Absolute Monos (auto) 0.6 (0-0.8) 10^3/ul Absolute Eos (auto) 0.1 (0-0.6) 10^3/ul Absolute Basos (auto) 0.1 (0-0.2) 10^3/ul Absolute Nucleated RBC 0.01 10^3/ul Nucleated RBC % 0.1 Sodium 141 (133-145) mmol/L Potassium 3.4 L (3.5-5.0) mmol/L Chloride 113 H (101-111) mmol/L Carbon Dioxide 22 (22-32) mmol/L Anion Gap 6 (2-11) mmol/L BUN 7 (6-24) mg/dL Creatinine 0.75 (0.51-0.95) mg/dL Est GFR ( Amer) 109.5 (>60) Est GFR (Non-Af Amer) 85.2 (>60) BUN/Creatinine Ratio 9.3 (8-20) Glucose 105 H (70-100) mg/dL Lactic Acid (0.5-2.0) mmol/L Calcium 8.6 (8.6-10.3) mg/dL Total Bilirubin 0.30 (0.2-1.0) mg/dL AST 19 (13-39) U/L ALT 16 (7-52) U/L Alkaline Phosphatase 46 (34-104) U/L Total Creatine Kinase 37 (10-223) U/L Troponin I 0.01 (<0.04) ng/mL Total Protein 6.9 (6.4-8.9) g/dL Albumin 3.2 (3.2-5.2) g/dL Globulin 3.7 (2-4) g/dL Albumin/Globulin Ratio 0.9 L (1-3) TSH 2.00 (0.34-5.60) mcIU/mL Beta HCG, Quant < 0.60 mIU/mL Urine Color Yellow Urine Appearance Cloudy Urine pH 6.0 (5-9) Ur Specific [place] 1.024 (1.010-1.030) Urine Protein 2+(100 mg/dl) H (Negative) Urine Ketones Negative (Negative) Urine Blood Negative (Negative) Urine Nitrate Negative (Negative) Urine Bilirubin Negative (Negative) Urine Urobilinogen Negative (Negative) Ur Leukocyte Esterase Negative (Negative) Urine Glucose Negative (Negative) Salicylates < 2.50 (<30) mg/dL Urine Opiates Screen (None Detect) Acetaminophen < 15 mcg/mL Ur Barbiturates Screen (None Detect) Ur Phencyclidine Scrn (None Detect) Ur Amphetamines Screen (None Detect) U Benzodiazepines Scrn (None Detect) Urine Cocaine Screen (None Detect) U Cannabinoids Screen (None Detect) Serum Alcohol < 10 (<10) mg/dL 11/27/16 11/27/16 Range/Units 12:31 12:31 WBC (3.5-10.8) 10^3/ul RBC (4.0-5.4) 10^6/ul Hgb (12.0-16.0) g/dl Hct (35-47) % MCV (80-97) fL MCH (27-31) pg MCHC (31-36) g/dl RDW (10.5-15) % Plt Count (150-450) 10^3/ul MPV (7.4-10.4) um3 Neut % (Auto) (38-83) % Lymph % (Auto) (25-47) % Faulkner % (Auto) (1-9) % Eos % (Auto) (0-6) % Baso % (Auto) (0-2) % Absolute Neuts (auto) (1.5-7.7) 10^3/ul Absolute Lymphs (auto) (1.0-4.8) 10^3/ul Absolute Monos (auto) (0-0.8) 10^3/ul Absolute Eos (auto) (0-0.6) 10^3/ul Absolute Basos (auto) (0-0.2) 10^3/ul Absolute Nucleated RBC 10^3/ul Nucleated RBC % Sodium (133-145) mmol/L Potassium (3.5-5.0) mmol/L Chloride (101-111) mmol/L Carbon Dioxide (22-32) mmol/L Anion Gap (2-11) mmol/L BUN (6-24) mg/dL Creatinine (0.51-0.95) mg/dL Est GFR ( Amer) (>60) Est GFR (Non-Af Amer) (>60) BUN/Creatinine Ratio (8-20) Glucose (70-100) mg/dL Lactic Acid 1.4 (0.5-2.0) mmol/L Calcium (8.6-10.3) mg/dL Total Bilirubin (0.2-1.0) mg/dL AST (13-39) U/L ALT (7-52) U/L Alkaline Phosphatase (34-104) U/L Total Creatine Kinase (10-223) U/L Troponin I (<0.04) ng/mL Total Protein (6.4-8.9) g/dL Albumin (3.2-5.2) g/dL Globulin (2-4) g/dL Albumin/Globulin Ratio (1-3) TSH (0.34-5.60) mcIU/mL Beta HCG, Quant mIU/mL Urine Color Urine Appearance Urine pH (5-9) Ur Specific [place] (1.010-1.030) Urine Protein (Negative) Urine Ketones (Negative) Urine Blood (Negative) Urine Nitrate (Negative) Urine Bilirubin (Negative) Urine Urobilinogen (Negative) Ur Leukocyte Esterase (Negative) Urine Glucose (Negative) Salicylates (<30) mg/dL Urine Opiates Screen None detected (None Detect) Acetaminophen mcg/mL Ur Barbiturates Screen None detected (None Detect) Ur Phencyclidine Scrn None detected (None Detect) Ur Amphetamines Screen None detected (None Detect) U Benzodiazepines Scrn None detected (None Detect) Urine Cocaine Screen Presumptive positive H (None Detect) U Cannabinoids Screen None detected (None Detect) Serum Alcohol (<10) mg/dL Assess/Plan/Problems-Billing Ms Marie is a 41 yo F who has a h/o depression, HTN, type II DM, HIV and hypothyroidism who presented to the ER after overdosing on metoprolol XL and enalapril - Patient Problems (1) Suicide attempt by beta roxanna overdose Current Visit: Yes Status: Acute Code(s): T44.7X2A - POISONING BY BETA- ADRENOCPT ANTAGONISTS, SELF-HARM, INIT SNOMED Code(s): 353420234 Comment: The patient overdosed on what she believes was ~45 tablets of metoprolol XL 100mg and ~30 tabs of enalapril 5mg. Poison control was contacted and recommended whole bowel irrigation. The patient completed this overnight. The daytime nurse is not aware of any pills being seen in her stool overnight. The patient's HR/BP have remained stable. Nursing will check in with poison control this AM to see if anything further is needed. She will need psych eval for possible admission to the [facility]. (2) HTN (hypertension) Current Visit: Yes Status: Chronic Code(s): I10 - ESSENTIAL (PRIMARY) HYPERTENSION SNOMED Code(s): 12339337 Comment: BP is under excellent control at this time. She is off all of her home medications currently. Continue to follow her BP. (3) Type II diabetes mellitus Current Visit: Yes Status: Acute Comment: Sugars have been under fair control off her metformin though she is not eating at this time. Continue lispro sliding scale. (4) HIV disease Current Visit: Yes Status: Chronic Code(s): B20 - HUMAN IMMUNODEFICIENCY VIRUS [HIV] DISEASE SNOMED Code(s): 82036324 Comment: HIV viral load and CD4 count pending. Pt has not been on treatment for her HIV. (5) Anxiety Current Visit: Yes Status: Chronic Code(s): F41.9 - ANXIETY DISORDER, UNSPECIFIED SNOMED Code(s): 55286504 Comment: Continue prn ativan for now. (6) HLD (hyperlipidemia) Current Visit: Yes Status: Chronic Code(s): E78.5 - HYPERLIPIDEMIA, UNSPECIFIED SNOMED Code(s): 81174337 Comment: Once more alert will resume statin. (7) Tobacco use disorder Current Visit: Yes Status: Chronic Code(s): Z72.0 - TOBACCO USE SNOMED Code(s): 983525294 Comment: Once alert encourage smoking cessation. (8) DVT prophylaxis Current Visit: Yes Status: Acute Code(s): LEU3709 - SNOMED Code(s): 203658238 Comment: SQ heparin (9) Full code status Current Visit: Yes Status: Acute Code(s): Z78.9 - OTHER SPECIFIED HEALTH STATUS SNOMED Code(s): 001871647
[2016-11-28] MEDS: KCL 20 MEQ/100 ML IVPREMIX* 20 MEQ/100 ML BAG IV SCH ×2 (09:29→13:27)
[2016-11-28] MEDS: Heparin VIAL(*) 5000 UNITS/ML VIAL (FIVE THOUSAND) SUBCUT SCH ×2 (10:08→22:44)
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
[2016-11-29] MEDS: Insulin LISPRO* 1 UNITS UNIT SUBCUT SCH ×3 (00:05→13:18)
[2016-11-29] MEDS ORDERED: Levothyroxine TAB* 100 MCG TAB PO SCH (06:45)
[2016-11-29] MEDS: Levothyroxine INJ* 100 MCG/5 ML VIAL IV SCH (07:22)
[2016-11-29 07:26] VITALS: BP 148/95
[2016-11-29] MEDS: clonazePAM TAB(*) 1 MG PO PRN ×2 (09:05)
[2016-11-29] MEDS: oxyCODONE/Acetamin 5/325 MG* TAB PO PRN ×2 (09:06)
[2016-11-29] MEDS: Heparin VIAL(*) 5000 UNITS/ML VIAL (FIVE THOUSAND) SUBCUT SCH (09:12)
--- NOTE | 2016-11-29 11:30 | PN ---
Subjective Date of Service: 11/29/16 Interval History: Pt is feeling ok. She states her breathing is slightly labored but it has been for a while. She denies any pain. Family History: Unchanged from Admission Social History: Unchanged from Admission Past Medical History: Unchanged from Admission Objective Active Medications: Clonazepam (Klonopin Tab(*)) 1 mg PO BID PRN PRN Reason: ANXIETY Last Admin: 11/29/16 09:05 Dose: 1 mg Dextrose (D50w Syringe 50 Ml*) 12.5 gm IV PUSH .FOR FS < 60 - SS PRN PRN Reason: FS < 60 Heparin Sodium (Porcine) (Heparin Vial(*)) 5,000 units SUBCUT Q12HR [facility] Last Admin: 11/29/16 09:12 Dose: Not Given Insulin Human Lispro (Humalog*) 0 units SUBCUT Q6HR [facility] PRN Reason: Protocol Last Admin: 11/29/16 05:42 Dose: Not Given Levothyroxine Sodium (Synthroid Tab*) 100 mcg PO DAILY@0600 [facility] Last Admin: 11/29/16 09:12 Dose: Not Given Lorazepam (Ativan Inj*) 2 mg IV PUSH Q4H PRN PRN Reason: ANXIETY Last Admin: 11/28/16 00:53 Dose: 2 mg Ondansetron HCl (Zofran Inj*) 4 mg IV Q6H PRN PRN Reason: NAUSEA Last Admin: 11/27/16 22:13 Dose: 4 mg Oxycodone/Acetaminophen (Percocet 5/325 Tab*) 1 tab PO Q6H PRN PRN Reason: PAIN Last Admin: 11/29/16 09:06 Dose: 1 tab Vital Signs 11/28/16 11/28/16 11/28/16 11:30 12:00 12:30 Temperature 99.5 F 99.3 F 99.5 F Pulse Rate 69 74 66 Respiratory 27 25 27 Rate Blood Pressure 131/87 131/79 122/70 (mmHg) O2 Sat by Pulse 94 94 96 Oximetry 11/28/16 11/28/16 11/28/16 13:00 13:30 14:00 Temperature 99.6 F 99.4 F 99.6 F Pulse Rate 69 70 76 Respiratory 22 32 25 Rate Blood Pressure 142/98 141/93 133/113 (mmHg) O2 Sat by Pulse 94 95 96 Oximetry 11/28/16 11/28/16 11/28/16 14:30 15:00 15:30 Temperature 99.3 F 99.7 F 99.7 F Pulse Rate 70 71 66 Respiratory 32 29 29 Rate Blood Pressure 134/83 124/83 134/98 (mmHg) O2 Sat by Pulse 95 95 95 Oximetry 11/28/16 11/28/16 11/28/16 16:00 16:30 17:00 Temperature 99.7 F 99.5 F 99.7 F Pulse Rate 71 73 70 Respiratory 13 26 28 Rate Blood Pressure 139/96 143/99 141/99 (mmHg) O2 Sat by Pulse 98 97 98 Oximetry 11/28/16 11/28/16 11/28/16 17:30 18:00 18:30 Temperature 99.8 F 99.7 F 99.8 F Pulse Rate 69 69 78 Respiratory 26 29 17 Rate Blood Pressure 136/89 139/91 (mmHg) O2 Sat by Pulse 97 95 96 Oximetry 11/28/16 11/28/16 11/28/16 19:00 19:30 20:00 Temperature 99.5 F 99.3 F 99.3 F Pulse Rate 68 71 Respiratory 31 27 17 Rate Blood Pressure 124/77 134/83 (mmHg) O2 Sat by Pulse 97 96 Oximetry 11/28/16 11/28/16 11/28/16 20:18 20:30 20:34 Temperature 99.4 F 98.8 F Pulse Rate 73 Respiratory 24 24 Rate Blood Pressure 134/92 (mmHg) O2 Sat by Pulse 93 Oximetry 11/28/16 11/29/16 11/29/16 23:21 00:00 02:00 Temperature 98.5 F Pulse Rate 73 Respiratory 24 22 16 Rate Blood Pressure 141/96 (mmHg) O2 Sat by Pulse 94 Oximetry 11/29/16 11/29/16 11/29/16 03:40 07:10 08:00 Temperature 97.1 F 98.5 F Pulse Rate 66 67 Respiratory 16 16 16 Rate Blood Pressure 136/88 148/95 (mmHg) O2 Sat by Pulse 90 91 Oximetry 11/29/16 11/29/16 11/29/16 09:05 09:06 10:41 Temperature Pulse Rate Respiratory 16 16 Rate Blood Pressure (mmHg) O2 Sat by Pulse 93 Oximetry Oxygen Devices in Use Now: None Appearance: Middle aged female lying in bed sleeping, awakened to voice, NAD Eyes: No Scleral Icterus Ears/Nose/Mouth/Throat: Mucous Membranes Moist Respiratory: Symmetrical Chest Expansion and Respiratory Effort, Clear to Auscultation - diminshed breath sounds in all lung gallagher Cardiovascular: NL Sounds; No Murmurs; No JVD, RRR, No Edema Abdominal: NL Sounds; No Tenderness; No Distention Extremities: No Clubbing, Cyanosis Skin: No Rash or Ulcers, No Nodules or Sclerosis Neurological: Alert and Oriented x 3 Result Diagrams: 11/28/16 05:34 11/28/16 05:34 Additional Lab and Data: Lab Results 11/27/16 11/27/16 11/27/16 Range/Units 12:31 12:31 12:31 WBC 9.8 (3.5-10.8) 10^3/ul RBC 4.33 (4.0-5.4) 10^6/ul Hgb 13.0 (12.0-16.0) g/dl Hct 39 (35-47) % MCV 90 (80-97) fL MCH 30 (27-31) pg MCHC 33 (31-36) g/dl RDW 15 (10.5-15) % Plt Count 265 (150-450) 10^3/ul MPV 8 (7.4-10.4) um3 Neut % (Auto) 70.5 (38-83) % Lymph % (Auto) 21.5 L (25-47) % Bay % (Auto) 5.9 (1-9) % Eos % (Auto) 1.5 (0-6) % Baso % (Auto) 0.6 (0-2) % Absolute Neuts (auto) 6.9 (1.5-7.7) 10^3/ul Absolute Lymphs (auto) 2.1 (1.0-4.8) 10^3/ul Absolute Monos (auto) 0.6 (0-0.8) 10^3/ul Absolute Eos (auto) 0.1 (0-0.6) 10^3/ul Absolute Basos (auto) 0.1 (0-0.2) 10^3/ul Absolute Nucleated RBC 0.01 10^3/ul Nucleated RBC % 0.1 Sodium 141 (133-145) mmol/L Potassium 3.4 L (3.5-5.0) mmol/L Chloride 113 H (101-111) mmol/L Carbon Dioxide 22 (22-32) mmol/L Anion Gap 6 (2-11) mmol/L BUN 7 (6-24) mg/dL Creatinine 0.75 (0.51-0.95) mg/dL Est GFR ( Amer) 109.5 (>60) Est GFR (Non-Af Amer) 85.2 (>60) BUN/Creatinine Ratio 9.3 (8-20) Glucose 105 H (70-100) mg/dL Lactic Acid (0.5-2.0) mmol/L Calcium 8.6 (8.6-10.3) mg/dL Total Bilirubin 0.30 (0.2-1.0) mg/dL AST 19 (13-39) U/L ALT 16 (7-52) U/L Alkaline Phosphatase 46 (34-104) U/L Total Creatine Kinase 37 (10-223) U/L Troponin I 0.01 (<0.04) ng/mL Total Protein 6.9 (6.4-8.9) g/dL Albumin 3.2 (3.2-5.2) g/dL Globulin 3.7 (2-4) g/dL Albumin/Globulin Ratio 0.9 L (1-3) TSH 2.00 (0.34-5.60) mcIU/mL Beta HCG, Quant < 0.60 mIU/mL Urine Color Yellow Urine Appearance Cloudy Urine pH 6.0 (5-9) Ur Specific [place] 1.024 (1.010-1.030) Urine Protein 2+(100 mg/dl) H (Negative) Urine Ketones Negative (Negative) Urine Blood Negative (Negative) Urine Nitrate Negative (Negative) Urine Bilirubin Negative (Negative) Urine Urobilinogen Negative (Negative) Ur Leukocyte Esterase Negative (Negative) Urine Glucose Negative (Negative) Salicylates < 2.50 (<30) mg/dL Urine Opiates Screen (None Detect) Acetaminophen < 15 mcg/mL Ur Barbiturates Screen (None Detect) Ur Phencyclidine Scrn (None Detect) Ur Amphetamines Screen (None Detect) U Benzodiazepines Scrn (None Detect) Urine Cocaine Screen (None Detect) U Cannabinoids Screen (None Detect) Serum Alcohol < 10 (<10) mg/dL 11/27/16 11/27/16 Range/Units 12:31 12:31 WBC (3.5-10.8) 10^3/ul RBC (4.0-5.4) 10^6/ul Hgb (12.0-16.0) g/dl Hct (35-47) % MCV (80-97) fL MCH (27-31) pg MCHC (31-36) g/dl RDW (10.5-15) % Plt Count (150-450) 10^3/ul MPV (7.4-10.4) um3 Neut % (Auto) (38-83) % Lymph % (Auto) (25-47) % Bay % (Auto) (1-9) % Eos % (Auto) (0-6) % Baso % (Auto) (0-2) % Absolute Neuts (auto) (1.5-7.7) 10^3/ul Absolute Lymphs (auto) (1.0-4.8) 10^3/ul Absolute Monos (auto) (0-0.8) 10^3/ul Absolute Eos (auto) (0-0.6) 10^3/ul Absolute Basos (auto) (0-0.2) 10^3/ul Absolute Nucleated RBC 10^3/ul Nucleated RBC % Sodium (133-145) mmol/L Potassium (3.5-5.0) mmol/L Chloride (101-111) mmol/L Carbon Dioxide (22-32) mmol/L Anion Gap (2-11) mmol/L BUN (6-24) mg/dL Creatinine (0.51-0.95) mg/dL Est GFR ( Amer) (>60) Est GFR (Non-Af Amer) (>60) BUN/Creatinine Ratio (8-20) Glucose (70-100) mg/dL Lactic Acid 1.4 (0.5-2.0) mmol/L Calcium (8.6-10.3) mg/dL Total Bilirubin (0.2-1.0) mg/dL AST (13-39) U/L ALT (7-52) U/L Alkaline Phosphatase (34-104) U/L Total Creatine Kinase (10-223) U/L Troponin I (<0.04) ng/mL Total Protein (6.4-8.9) g/dL Albumin (3.2-5.2) g/dL Globulin (2-4) g/dL Albumin/Globulin Ratio (1-3) TSH (0.34-5.60) mcIU/mL Beta HCG, Quant mIU/mL Urine Color Urine Appearance Urine pH (5-9) Ur Specific [place] (1.010-1.030) Urine Protein (Negative) Urine Ketones (Negative) Urine Blood (Negative) Urine Nitrate (Negative) Urine Bilirubin (Negative) Urine Urobilinogen (Negative) Ur Leukocyte Esterase (Negative) Urine Glucose (Negative) Salicylates (<30) mg/dL Urine Opiates Screen None detected (None Detect) Acetaminophen mcg/mL Ur Barbiturates Screen None detected (None Detect) Ur Phencyclidine Scrn None detected (None Detect) Ur Amphetamines Screen None detected (None Detect) U Benzodiazepines Scrn None detected (None Detect) Urine Cocaine Screen Presumptive positive H (None Detect) U Cannabinoids Screen None detected (None Detect) Serum Alcohol (<10) mg/dL Assess/Plan/Problems-Billing Ms Marie is a 41 yo F who has a h/o depression, HTN, type II DM, HIV and hypothyroidism who presented to the ER after overdosing on metoprolol XL and enalapril - Patient Problems (1) Suicide attempt by beta roxanna overdose Current Visit: Yes Status: Acute Code(s): T44.7X2A - POISONING BY BETA- ADRENOCPT ANTAGONISTS, SELF-HARM, INIT SNOMED Code(s): 811674197 Comment: Pt is medically stable for d/c to the MHU. Vital signs are stable. (2) HTN (hypertension) Current Visit: Yes Status: Chronic Code(s): I10 - ESSENTIAL (PRIMARY) HYPERTENSION SNOMED Code(s): 69459321 Comment: BP is under fair control. Will resume HCTZ 12.5mg daily. (3) Type II diabetes mellitus Current Visit: Yes Status: Acute Comment: Sugars are under good control with diet alone. Continue lispro sliding scale. (4) HIV disease Current Visit: Yes Status: Chronic Code(s): B20 - HUMAN IMMUNODEFICIENCY VIRUS [HIV] DISEASE SNOMED Code(s): 69820930 Comment: HIV viral load and CD4 count pending. Pt has not been on treatment for her HIV. (5) Anxiety Current Visit: Yes Status: Chronic Code(s): F41.9 - ANXIETY DISORDER, UNSPECIFIED SNOMED Code(s): 64708599 Comment: Continue prn ativan for now. (6) HLD (hyperlipidemia) Current Visit: Yes Status: Chronic Code(s): E78.5 - HYPERLIPIDEMIA, UNSPECIFIED SNOMED Code(s): 36295877 Comment: Resume statin. (7) Tobacco use disorder Current Visit: Yes Status: Chronic Code(s): Z72.0 - TOBACCO USE SNOMED Code(s): 352388726 Comment: Encourage smoking cessation. (8) DVT prophylaxis Current Visit: Yes Status: Acute Code(s): CBQ8898 - SNOMED Code(s): 837455025 Comment: SQ heparin (9) Full code status Current Visit: Yes Status: Acute Code(s): Z78.9 - OTHER SPECIFIED HEALTH STATUS SNOMED Code(s): 848062320
[2016-11-29] MEDS ORDERED: Hydrochlorothiazide TAB* 25 MG PO SCH (12:00)
--- NOTE | 2016-11-29 12:36 | CONSULT ---
Identification - Patient Identification Reason for Psychiatric Consultation: Suicidal Ideation -: Patient is a 41 year old, F admitted on 11/27/16. - MHU Identification Employment Status: Unemployed Hx Psychiatric Hospitalization: Yes History - Objective HPI: Danielle is seen in her room on [address], shackled in pink handcuffs to her bed with two non-uniformed parole officers accompanying her on watch. She continues to endorse SI, stating "I was supposed to be starting school this month, now I'm going to alf for a year." She admits to relapsing on cocaine and has only been out of the [facility] for four months. She is more cooperative today than yesterday. Lab Results: Laboratory Tests 11/27/16 11/28/16 11/28/16 18:09 00:15 05:34 WBC 8.6 RBC 4.18 Hgb 12.7 Hct 37 MCV 90 MCH 30 MCHC 34 RDW 14 Plt Count 224 MPV 8 Sodium Potassium Chloride Carbon Dioxide Anion Gap BUN Creatinine Est GFR ( Amer) Est GFR (Non-Af Amer) BUN/Creatinine Ratio Glucose POC Glucose (mg/dL) 120 H 79 Calcium Total Bilirubin AST ALT Alkaline Phosphatase Total Protein Albumin Globulin Albumin/Globulin Ratio 11/28/16 11/28/16 11/28/16 05:34 12:37 18:29 WBC RBC Hgb Hct MCV MCH MCHC RDW Plt Count MPV Sodium 136 Potassium 3.3 L Chloride 104 Carbon Dioxide 26 Anion Gap 6 BUN 6 Creatinine 0.75 Est GFR ( Amer) 109.5 Est GFR (Non-Af Amer) 85.2 BUN/Creatinine Ratio 8.0 Glucose 81 POC Glucose (mg/dL) 87 82 Calcium 8.3 L Total Bilirubin 0.40 AST 18 ALT 16 Alkaline Phosphatase 48 Total Protein 6.9 Albumin 3.4 Globulin 3.5 Albumin/Globulin Ratio 1.0 11/29/16 11/29/16 11/29/16 00:03 05:39 11:57 WBC RBC Hgb Hct MCV MCH MCHC RDW Plt Count MPV Sodium Potassium Chloride Carbon Dioxide Anion Gap BUN Creatinine Est GFR ( Amer) Est GFR (Non-Af Amer) BUN/Creatinine Ratio Glucose POC Glucose (mg/dL) 124 H 99 98 Calcium Total Bilirubin AST ALT Alkaline Phosphatase Total Protein Albumin Globulin Albumin/Globulin Ratio Exam Appearance: Obese Hygiene: Normal Grooming: Fairly Well Kept Psychomotor Activities: Normal Exhibits Abnormal Movement: No Attitude and Relatedness: Cooperative Eye Contact: Fair - Speech Quality: Unpressured Latencies: Normal Quantity: Terse Patient's Decription of Mood: "Terrible" Observed Affect: Constricted Affect Consistent with: Dysphoria Patient's Thought Process: Coherent Thought Content: Yes Suicidal Planning, No Passive Wish, No Homicidal Ideation, No Paranoid Ideation Experiencing Hallucinations: No, Sensorium is Clear Type of Hallucinations: Visual: No, Auditory: No, Command: No Level of Consciousness: Alert Orientation: Yes Intact, Yes Orientated to Time, Yes Orientated to Place, Yes Orientated to Person Impulse Control: Poor Insight and Judgement: Impaired Impression - Impression Clinical Impression: 41 y.o. , white obese female with multiple medical comorbidities is currently admitted to the medical unit following an intentional overdose on approximately 75 tablets of oral antidepressants in a suicide attempt. The patient has been abusing cocaine and is in police custody for parole violation. Inpatient DSM-IV Dx: Cocaine Induced Mood DO Merits Inpatient Hospitalization: Yes Problem List - MHU Problems Type of Problem: Mood Status of Problem: Active Plan - Treatment Plan Treatment Plan: Recommend transfer to psychiatric unit once medically clear. Psychiatry will continue to follow. Continued Medication Management: Continue Outpt Medication Medications: Current Medications Atorvastatin Calcium (Lipitor*) 20 mg PO DAILY EZRA Clonazepam (Klonopin Tab(*)) 1 mg PO BID PRN PRN Reason: ANXIETY Last Admin: 11/29/16 09:05 Dose: 1 mg Dextrose (D50w Syringe 50 Ml*) 12.5 gm IV PUSH .FOR FS < 60 - SS PRN PRN Reason: FS < 60 Heparin Sodium (Porcine) (Heparin Vial(*)) 5,000 units SUBCUT Q12HR [facility] Last Admin: 11/29/16 09:12 Dose: Not Given Hydrochlorothiazide (Hydrodiuril Tab*) 12.5 mg PO DAILY [facility] Insulin Human Lispro (Humalog*) 0 units SUBCUT Q6HR [facility] PRN Reason: Protocol Last Admin: 11/29/16 05:42 Dose: Not Given Levothyroxine Sodium (Synthroid Tab*) 100 mcg PO DAILY@0600 [facility] Last Admin: 11/29/16 09:12 Dose: Not Given Ondansetron HCl (Zofran Inj*) 4 mg IV Q6H PRN PRN Reason: NAUSEA Last Admin: 11/27/16 22:13 Dose: 4 mg Oxycodone/Acetaminophen (Percocet 5/325 Tab*) 1 tab PO Q6H PRN PRN Reason: PAIN Last Admin: 11/29/16 09:06 Dose: 1 tab - Discharge Plan Discharge Plan: Inpatient Hospitalization
--- NOTE | 2016-11-30 05:07 | DS ---
CC: Dr. Maria Isabel Perez* DISCHARGE SUMMARY: DATE OF ADMISSION: 11/27/16 DATE OF DISCHARGE: 11/29/16 PRIMARY CARE PROVIDER: Dr. Maria Isabel Perez. PRINCIPAL DIAGNOSIS: Intentional beta-roxanna and PHILLIP inhibitor overdose with an attempt to commit suicide. SECONDARY DIAGNOSES: 1. Hypertension. 2. Type 2 diabetes. 3. Hyperlipidemia. 4. Hypothyroidism. 5. HIV. DISCHARGE MEDICATIONS: 1. Oxycodone 1 tab p.o. q.8 hours p.r.n. pain. 2. Metformin 500 mg p.o. daily. 3. Clonazepam 1 mg p.o. b.i.d. p.r.n. anxiety. 4. Valtrex 1 g p.o. b.i.d. p.r.n. herpes outbreak. 5. Levothyroxine 100 mcg p.o. daily. 6. Hydrochlorothiazide 12.5 mg p.o. daily. 7. Enalapril 5 mg p.o. daily. 8. Atorvastatin 20 mg p.o. daily. 9. Aspirin 81 mg p.o. daily. 10. Albuterol 2 puffs inhaled q.6 hours p.r.n. shortness of breath. 11. Acyclovir ointment apply topically 4 times daily as needed for cold sore. HOSPITAL COURSE: Ms. Marie is a 41-year-old female who was brought into the hospital by parole officers who were going to pick the patient up on obtaining warrant when she overdosed on approximately 45 tablets of metoprolol XL, 100 mg a piece and approximately 30 tablets of enalapril 5 mg a piece. The patient in the emergency room was given activated charcoal. I believe when the extended release formulation of the metoprolol was identified, the decision was made to perform whole bowel irrigation. The patient had an NG tube placed and was given GoLYTELY via the NG tube at a rapid rate to induce liquid stool. The patient completed the therapy. She did not go hypotensive or severely bradycardic. The patient during the course of her hospitalization remained suicidal. The decision was made that she needs mental health care on the behavioral services unit. The patient is being discharged there today. The patient has been refusing her routine home medications stating that she is going to take anything because she just wants to . On the mental health unit , the patient should be placed on fingersticks q.a.c. along with a lispro sliding scale. The hospitalist service will be able to follow along if needed for her chronic medical condition while she is on the mental health unit; however, please reconsult for this. FOLLOWUP CONCERNS: The patient is being discharged to the mental health unit today, 11/29/16. ACTIVITY LEVEL: As tolerated. DIET: Regular. CONDITION ON DISCHARGE: Stable. TIME SPENT: 35 minutes were spent discharging this patient. [id number]/CPS #: [id number] JUDITH
[2016-11-30] MEDS ORDERED: Atorvastatin* 20 MG TAB PO SCH (09:00)
[2016-11-30 21:46] LABS: % CD3 77 % (58-86); % CD4 15 % (32-64); % CD8 60 % (13-40); Absolute CD45 Count 2.15 thou/mcL (0.82-2.84)
== END 2016-11-29 15:00 | DRG 812 ==
LOC: ED 11:10 → ICU 13:26 → OBSVTOIN 13:26 → MEDTELE 11-28 20:40
PROVIDERS: ADMIT Internal Medicine; ATTEND Hospitalist
PROC: 0D9670Z Drainage of Stomach with Drainage Device, Via Natural or Artificial Opening (ICD-10-PCS; principal; 2016-11-27)
DX: T44.7X2A Poisoning by beta-adrenoreceptor antagonists, intentional self-harm, initial encounter (principal); I10 Essential (primary) hypertension; T46.4X2A Poisoning by angiotensin-converting-enzyme inhibitors, intentional self-harm, initial encounter; E78.5 Hyperlipidemia, unspecified; E03.9 Hypothyroidism, unspecified; E11.9 Type 2 diabetes mellitus without complications; F17.210 Nicotine dependence, cigarettes, uncomplicated; F32.9 Major depressive disorder, single episode, unspecified; F43.10 Post-traumatic stress disorder, unspecified; F60.3 Borderline personality disorder; E78.00 Pure hypercholesterolemia, unspecified; F41.0 Panic disorder [episodic paroxysmal anxiety]; R40.2412 Glasgow coma scale score 13-15, at arrival to emergency department; R09.02 Hypoxemia; R40.0 Somnolence; E66.9 Obesity, unspecified; F14.14 Cocaine abuse with cocaine-induced mood disorder; Z62.810 Personal history of physical and sexual abuse in childhood; F60.2 Antisocial personality disorder; G47.33 Obstructive sleep apnea (adult) (pediatric); F12.90 Cannabis use, unspecified, uncomplicated; Z21 Asymptomatic human immunodeficiency virus [HIV] infection status; Y92.9 Unspecified place or not applicable; Z82.49 Family history of ischemic heart disease and other diseases of the circulatory system; Z72.89 Other problems related to lifestyle; Z91.5 Personal history of self-harm; Z68.27 Body mass index [BMI] 27.0-27.9, adult; Z79.82 Long term (current) use of aspirin; Z79.84 Long term (current) use of oral hypoglycemic drugs
CPT/HCPCS: 36415; 71010; 80053; 80307; 80320; 80329; 81003; 81015; 82550; 83605; 84443; 84484; 84702; 85025; 85027; 86359; 86360; 87536; 93005; 94640; 94760; 99406; A9270-GY; G0480; J1170; J1644; J1940; J2060; J2250; J2405; J3010; J3480

== ENCOUNTER 2016-11-29 12:38 | Inpatient (IN) | payer MEDICAID, OTHER ==
[2016-11-29] MEDS ORDERED: Al Hydrox/Mg Hydrox/Simet LIQ* 30 ML UDC PO PRN (13:19)
[2016-11-29] MEDS ORDERED: Dextrose 50% Syringe 50 ML* 25 GM/50 ML SYRINGE IV PUSH PRN (16:33)
[2016-11-29] MEDS: Atorvastatin* 20 MG TAB PO SCH (16:57)
[2016-11-29] MEDS: clonazePAM TAB(*) 1 MG PO PRN (17:00)
[2016-11-29] MEDS: oxyCODONE/Acetamin 5/325 MG* TAB PO PRN (17:00)
[2016-11-30] MEDS: Levothyroxine TAB* 100 MCG TAB PO SCH (06:22)
[2016-11-30] MEDS: Insulin LISPRO* 1 UNITS UNIT SUBCUT SCH ×3 (07:40→17:43)
[2016-11-30] MEDS: oxyCODONE/Acetamin 5/325 MG* TAB PO PRN ×2 (08:04→15:58)
[2016-11-30] MEDS: clonazePAM TAB(*) 1 MG PO PRN ×2 (08:05→17:42)
[2016-11-30] MEDS: Enalapril TAB* 5 MG PO SCH (08:42)
[2016-11-30] MEDS: Hydrochlorothiazide TAB* 25 MG PO SCH (08:42)
[2016-11-30] MEDS: Metoprolol Succinate XL TAB* 100 MG PO SCH (08:42)
[2016-11-30] MEDS: Aspirin Low Dose CHEW TAB* 81 MG PO SCH (08:42)
[2016-11-30] MEDS: Venlafaxine EXT RELEASE CAP* 75 MG PO SCH (08:43)
[2016-11-30] MEDS: Multivitamins/Minerals TAB PO SCH (08:43)
[2016-11-30] MEDS ORDERED: oxyCODONE/Acetamin 5/325 MG* TAB PO PRN (13:58)
[2016-11-30] MEDS ORDERED: oxyCODONE/Acetamin 10/325(NF) TAB PO PRN (14:09)
[2016-11-30] MEDS: oxyCODONE TAB* 5 MG TAB PO PRN (15:57)
[2016-11-30] MEDS: Albuterol HFA INHALER* 8 gm MDI INH PRN (16:33)
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
[2016-11-30] MEDS ORDERED: metFORMIN* 1,000 MG TAB PO SCH (17:00)
[2016-11-30] MEDS: metFORMIN* 500 MG TAB PO SCH (17:41)
[2016-11-30] MEDS: Atorvastatin* 20 MG TAB PO SCH (17:41)
[2016-11-30] MEDS ORDERED: Mouth Piece, Nicotine* 1 EACH CARTRIDGE INH SCH (21:55)
[2016-11-30] MEDS ORDERED: Nicotine Inhaler* 10 MG AMP INH PRN (21:55)
[2016-11-30] MEDS ORDERED: Nicotine GUM* 2 MG PO PRN (21:55)
[2016-12-01] MEDS: Insulin LISPRO* 1 UNITS UNIT SUBCUT SCH ×3 (07:55→16:47)
[2016-12-01] MEDS: Metoprolol Succinate XL TAB* 100 MG PO SCH (08:28)
[2016-12-01] MEDS: metFORMIN* 500 MG TAB PO SCH ×2 (08:29→17:14)
[2016-12-01] MEDS: Enalapril TAB* 5 MG PO SCH (08:29)
[2016-12-01] MEDS: Venlafaxine EXT RELEASE CAP* 75 MG PO SCH (08:29)
[2016-12-01] MEDS: Levothyroxine TAB* 100 MCG TAB PO SCH (08:29)
[2016-12-01] MEDS: Multivitamins/Minerals TAB PO SCH (08:29)
[2016-12-01] MEDS: clonazePAM TAB(*) 1 MG PO PRN ×2 (08:34→21:17)
[2016-12-01] MEDS: oxyCODONE TAB* 5 MG TAB PO PRN ×2 (08:34→16:21)
[2016-12-01] MEDS: oxyCODONE/Acetamin 5/325 MG* TAB PO PRN ×2 (08:35→16:21)
[2016-12-01] MEDS: Hydrochlorothiazide TAB* 25 MG PO SCH (09:14)
[2016-12-01] MEDS: Aspirin Low Dose CHEW TAB* 81 MG PO SCH (09:14)
[2016-12-01] MEDS: Albuterol HFA INHALER* 8 gm MDI INH PRN (11:11)
--- NOTE | 2016-12-01 15:19 | PN ---
Subjective - Subjective Service Type: 54858 Hosp care 15 min low complexity Subjective: The patient remains extremely depressed and continues to threaten to kill herself if released to halfway. She is cooperative with this examiner and has been attending groups, appearing motivated for treatment. SW, Belkis Sorensen, was able to get in touch with Danielle's outpatient providers and there appears to be unanimity in terms of concern for her safety. There is similar consensus that Danielle would likely benefit from transfer to a longer term inpatient psychiatric setting such as [facility]. The patient expresses agreement with this. Objective - Appearance Appearance: Obese Dysmorphic Features: No Hygiene: Normal Grooming: Fairly Well Kept - Behavior Psychomotor Activities: Abnormal-Decreased Exhibits Abnormal Movement: No - Attitude and Relatedness Attitude and Relatedness: Cooperative Eye Contact: Good - Speech Quality: Unpressured Latencies: Normal Quantity: Appropriate - Mood Patient's Decription of Mood: "Terrible" - Affect Observed Affect: Tearful Affect Consistent with: Dysphoria - Thought Process Patient's Thought Process: Coherent Thought Content: Yes Suicidal Planning, No Passive Wish, No Homicidal Ideation, No Paranoid Ideation - Sensorium Experiencing Hallucinations: No, Sensorium is Clear Type of Hallucinations: Visual: No, Auditory: No, Command: No - Level of Consciousness Level of Consciousness: Alert Orientation: Yes Intact, Yes Orientated to Time, Yes Orientated to Place, Yes Orientated to Person - Impulse Control Impulse Control: Poor - Insight and Judgement Insight and Judgement: Impaired - Group Participation Particating in Group Activities: Yes - Medication Management Medication Management Adherence: Yes Assessment - Assessment Merits Inpatient Hospitalization: For Immediate Safety, For Stabilization Inpatient DSM-IV Dx: MDD, recurrent, severe without psychotic features Clinical Impression: 41 y.o. , white female with a history of HIV, diabetes and multiple other medical comorbidities, as well as recurrent depression, cocaine abuse and borderline PD, who was transferred from the Hospitalist service following an intentional ingestion of roughly 75 antihypertensive pills in a suicide attempt. Plan - Plan Treatment Plan: Name: DANIELLE DIANA Birthdate: 1975 [id number] The patient is severely depressed and likely needing longer term treatment than we can provide. She is receiving scheduled venlafaxine and prn clonazepam. Will initiate transfer to [facility]. Continued Medication Management: Continue Outpt Medication Medications: Current Medications Acetaminophen (Tylenol Tab*) 650 mg PO Q4H PRN PRN Reason: for pain; or Temp >101 F Al Hydrox/Mg Hydrox/Simethicone (Maalox Plus*) 30 ml PO Q4H PRN PRN Reason: INDIGESTION Albuterol (Ventolin Hfa Inhaler*) 2 puff INH Q6H PRN PRN Reason: SOB/WHEEZING Last Admin: 12/01/16 11:11 Dose: 2 puff Aspirin (Aspirin Low Dose Tab*) 81 mg PO DAILY [facility] Last Admin: 12/01/16 09:14 Dose: 81 mg Atorvastatin Calcium (Lipitor*) 20 mg PO 1700 [facility] Last Admin: 11/30/16 17:41 Dose: 20 mg Clonazepam (Klonopin Tab(*)) 1 mg PO BID PRN PRN Reason: AGITATION/ANXIETY/INSOMNIA Last Admin: 12/01/16 08:34 Dose: 1 mg Device (Nicotine Mouth Piece*) 1 each INH .CARTRIDGE [facility] Last Admin: 12/01/16 11:10 Dose: 1 each Dextrose (D50w Syringe 50 Ml*) 12.5 gm IV PUSH .FOR FS < 60 - SS PRN PRN Reason: FS < 60 Enalapril Maleate (Vasotec Tab*) 5 mg PO DAILY [facility] Last Admin: 12/01/16 08:29 Dose: 5 mg Hydrochlorothiazide (Hydrodiuril Tab*) 12.5 mg PO DAILY [facility] Last Admin: 12/01/16 09:14 Dose: Not Given Insulin Human Lispro (Humalog*) 0 units SUBCUT AC [facility] PRN Reason: Protocol Last Admin: 12/01/16 13:30 Dose: Not Given Levothyroxine Sodium (Synthroid Tab*) 100 mcg PO DAILY@0600 [facility] Last Admin: 12/01/16 08:29 Dose: 100 mcg Metformin HCl (Glucophage*) 500 mg PO 0800,1700 [facility] Last Admin: 12/01/16 08:29 Dose: 500 mg Metoprolol Succinate (Toprol Xl Tab*) 100 mg PO DAILY [facility] Last Admin: 12/01/16 08:28 Dose: 100 mg Multivitamins/Minerals (Theragran/Minerals Tab*) 1 tab PO DAILY [facility] Last Admin: 12/01/16 08:29 Dose: 1 tab Nicotine (Nicotine Inhaler*) 10 mg INH Q2H PRN PRN Reason: CRAVING Last Admin: 12/01/16 11:12 Dose: 10 mg Nicotine Polacrilex (Nicotine Gum*) 2 mg PO Q2H PRN PRN Reason: CRAVING Oxycodone HCl (Roxycodone Tab*) 5 mg PO Q8H PRN PRN Reason: PAIN Last Admin: 12/01/16 08:34 Dose: 5 mg Oxycodone/Acetaminophen (Percocet 5/325 Tab*) 1 tab PO Q8H PRN PRN Reason: PAIN Last Admin: 12/01/16 08:35 Dose: 1 tab Venlafaxine HCl (Effexor Xr Cap*) 150 mg PO DAILY [facility] Last Admin: 12/01/16 08:29 Dose: 150 mg - Discharge Plan Discharge Plan: Consider Longer Term Tx
[2016-12-01] MEDS: Atorvastatin* 20 MG TAB PO SCH (17:14)
[2016-12-02] MEDS: Albuterol HFA INHALER* 8 gm MDI INH PRN (01:04)
[2016-12-02] MEDS: oxyCODONE TAB* 5 MG TAB PO PRN ×3 (01:04→20:10)
[2016-12-02] MEDS: Multivitamins/Minerals TAB PO SCH (08:17)
[2016-12-02] MEDS: Levothyroxine TAB* 100 MCG TAB PO SCH (08:17)
[2016-12-02] MEDS: metFORMIN* 500 MG TAB PO SCH ×2 (08:17→16:53)
[2016-12-02] MEDS: Metoprolol Succinate XL TAB* 100 MG PO SCH (08:17)
[2016-12-02] MEDS: Aspirin Low Dose CHEW TAB* 81 MG PO SCH (08:17)
[2016-12-02] MEDS: oxyCODONE/Acetamin 5/325 MG* TAB PO PRN ×2 (08:18→17:36)
[2016-12-02] MEDS: Enalapril TAB* 5 MG PO SCH (08:18)
[2016-12-02] MEDS: Venlafaxine EXT RELEASE CAP* 75 MG PO SCH (08:18)
[2016-12-02] MEDS: clonazePAM TAB(*) 1 MG PO PRN ×2 (08:18→20:11)
[2016-12-02] MEDS: Hydrochlorothiazide TAB* 25 MG PO SCH (08:19)
[2016-12-02] MEDS: Insulin LISPRO* 1 UNITS UNIT SUBCUT SCH ×3 (08:29→16:35)
[2016-12-02] MEDS: Atorvastatin* 20 MG TAB PO SCH (16:53)
[2016-12-03] MEDS: Metoprolol Succinate XL TAB* 100 MG PO SCH (08:26)
[2016-12-03] MEDS: Multivitamins/Minerals TAB PO SCH (08:26)
[2016-12-03] MEDS: Enalapril TAB* 5 MG PO SCH (08:26)
[2016-12-03] MEDS: Aspirin Low Dose CHEW TAB* 81 MG PO SCH (08:26)
[2016-12-03] MEDS: Venlafaxine EXT RELEASE CAP* 75 MG PO SCH (08:26)
[2016-12-03] MEDS: metFORMIN* 500 MG TAB PO SCH ×2 (08:26→16:39)
[2016-12-03] MEDS: Levothyroxine TAB* 100 MCG TAB PO SCH (08:26)
[2016-12-03] MEDS: clonazePAM TAB(*) 1 MG PO PRN ×2 (08:27→20:17)
[2016-12-03] MEDS: oxyCODONE TAB* 5 MG TAB PO PRN ×2 (08:27→16:40)
[2016-12-03] MEDS: oxyCODONE/Acetamin 5/325 MG* TAB PO PRN ×2 (08:27→20:17)
[2016-12-03] MEDS: Insulin LISPRO* 1 UNITS UNIT SUBCUT SCH ×3 (08:59→16:35)
[2016-12-03] MEDS: Hydrochlorothiazide TAB* 25 MG PO SCH (08:59)
[2016-12-03] MEDS ORDERED: Magnesium Hydroxide LIQ* 30 ML UDC PO PRN (11:27)
--- NOTE | 2016-12-03 11:31 | PN ---
Subjective - Subjective Service Type: 36342 Hosp care 15 min low complexity Subjective: Patient remains depressed and hopeless about her situation. She is calm and cooperative and taking her meds as prescribed. She inquires about her CD4 count and viral load, as these have not been checked in several months and she had been refusing antiretroviral meds. The patient remains agreeable to the transfer to [facility] for longer term care. Objective - Appearance Appearance: Obese Dysmorphic Features: No Hygiene: Normal Grooming: Fairly Well Kept - Behavior Psychomotor Activities: Abnormal-Decreased Exhibits Abnormal Movement: No - Attitude and Relatedness Attitude and Relatedness: Cooperative Eye Contact: Fair - Speech Quality: Unpressured Latencies: Normal Quantity: Appropriate - Mood Patient's Decription of Mood: "Sad" - Affect Observed Affect: Constricted Affect Consistent with: Dysphoria - Thought Process Patient's Thought Process: Coherent Thought Content: Yes Suicidal Planning, No Passive Wish, No Homicidal Ideation, No Paranoid Ideation - Sensorium Experiencing Hallucinations: No, Sensorium is Clear Type of Hallucinations: Visual: No, Auditory: No, Command: No - Level of Consciousness Level of Consciousness: Agitated Orientation: Yes Intact, Yes Orientated to Time, Yes Orientated to Place, Yes Orientated to Person - Impulse Control Impulse Control: Poor - Insight and Judgement Insight and Judgement: Impaired - Group Participation Particating in Group Activities: Yes - Medication Management Medication Management Adherence: Yes Assessment - Assessment Merits Inpatient Hospitalization: For Immediate Safety, For Stabilization Inpatient DSM-IV Dx: MDD, recurrent, severe without psychotic features Clinical Impression: 41 y.o. , white female with a history of HIV, diabetes and multiple other medical comorbidities, as well as recurrent depression, cocaine abuse and borderline PD, who was transferred from the Hospitalist service following an intentional ingestion of roughly 75 antihypertensive pills in a suicide attempt. Plan - Plan Treatment Plan: Name: RICCO DIANA Birthdate: 1975 [id number] The patient is severely depressed and likely needing longer term treatment than we can provide. She is receiving scheduled venlafaxine and prn clonazepam. Will initiate transfer to [facility]. In meantime will check CD4 count and viral load and consider resuming antiretrovirals. Continued Medication Management: Continue Outpt Medication Medications: Current Medications Acetaminophen (Tylenol Tab*) 650 mg PO Q4H PRN PRN Reason: for pain; or Temp >101 F Al Hydrox/Mg Hydrox/Simethicone (Maalox Plus*) 30 ml PO Q4H PRN PRN Reason: INDIGESTION Albuterol (Ventolin Hfa Inhaler*) 2 puff INH Q6H PRN PRN Reason: SOB/WHEEZING Last Admin: 12/02/16 01:04 Dose: 2 puff Aspirin (Aspirin Low Dose Tab*) 81 mg PO DAILY [facility] Last Admin: 12/03/16 08:26 Dose: 81 mg Atorvastatin Calcium (Lipitor*) 20 mg PO 1700 [facility] Last Admin: 12/02/16 16:53 Dose: 20 mg Clonazepam (Klonopin Tab(*)) 1 mg PO BID PRN PRN Reason: AGITATION/ANXIETY/INSOMNIA Last Admin: 12/03/16 08:27 Dose: 1 mg Device (Nicotine Mouth Piece*) 1 each INH .CARTRIDGE [facility] Last Admin: 12/01/16 11:10 Dose: 1 each Dextrose (D50w Syringe 50 Ml*) 12.5 gm IV PUSH .FOR FS < 60 - SS PRN PRN Reason: FS < 60 Enalapril Maleate (Vasotec Tab*) 5 mg PO DAILY [facility] Last Admin: 12/03/16 08:26 Dose: 5 mg Hydrochlorothiazide (Hydrodiuril Tab*) 12.5 mg PO DAILY [facility] Last Admin: 12/03/16 08:59 Dose: Not Given Insulin Human Lispro (Humalog*) 0 units SUBCUT AC [facility] PRN Reason: Protocol Last Admin: 12/03/16 08:59 Dose: Not Given Levothyroxine Sodium (Synthroid Tab*) 100 mcg PO DAILY@0600 [facility] Last Admin: 12/03/16 08:26 Dose: 100 mcg Metformin HCl (Glucophage*) 500 mg PO 0800,1700 [facility] Last Admin: 12/03/16 08:26 Dose: 500 mg Metoprolol Succinate (Toprol Xl Tab*) 100 mg PO DAILY [facility] Last Admin: 12/03/16 08:26 Dose: 100 mg Multivitamins/Minerals (Theragran/Minerals Tab*) 1 tab PO DAILY [facility] Last Admin: 12/03/16 08:26 Dose: 1 tab Nicotine (Nicotine Inhaler*) 10 mg INH Q2H PRN PRN Reason: CRAVING Last Admin: 12/01/16 11:12 Dose: 10 mg Nicotine Polacrilex (Nicotine Gum*) 2 mg PO Q2H PRN PRN Reason: CRAVING Oxycodone HCl (Roxycodone Tab*) 5 mg PO Q8H PRN PRN Reason: PAIN Last Admin: 12/03/16 08:27 Dose: 5 mg Oxycodone/Acetaminophen (Percocet 5/325 Tab*) 1 tab PO Q8H PRN PRN Reason: PAIN Last Admin: 12/03/16 08:27 Dose: 1 tab Venlafaxine HCl (Effexor Xr Cap*) 150 mg PO DAILY [facility] Last Admin: 12/03/16 08:26 Dose: 150 mg - Discharge Plan Discharge Plan: Consider Longer Term Tx
[2016-12-03] MEDS: Acetaminophen TAB* 325 MG PO PRN (12:08)
[2016-12-03] MEDS: Atorvastatin* 20 MG TAB PO SCH (16:39)
[2016-12-04] MEDS: Insulin LISPRO* 1 UNITS UNIT SUBCUT SCH ×3 (07:45→17:03)
[2016-12-04] MEDS: Hydrochlorothiazide TAB* 25 MG PO SCH (08:29)
[2016-12-04] MEDS: Aspirin Low Dose CHEW TAB* 81 MG PO SCH (08:31)
[2016-12-04] MEDS: Levothyroxine TAB* 100 MCG TAB PO SCH (08:31)
[2016-12-04] MEDS: Enalapril TAB* 5 MG PO SCH (08:31)
[2016-12-04] MEDS: metFORMIN* 500 MG TAB PO SCH ×2 (08:31→17:18)
[2016-12-04] MEDS: Metoprolol Succinate XL TAB* 100 MG PO SCH (08:32)
[2016-12-04] MEDS: Multivitamins/Minerals TAB PO SCH (08:32)
[2016-12-04] MEDS: Venlafaxine EXT RELEASE CAP* 75 MG PO SCH (08:32)
[2016-12-04] MEDS: oxyCODONE/Acetamin 5/325 MG* TAB PO PRN ×2 (08:33→21:04)
[2016-12-04] MEDS: oxyCODONE TAB* 5 MG TAB PO PRN ×3 (08:33→23:33)
[2016-12-04] MEDS: clonazePAM TAB(*) 1 MG PO PRN ×2 (08:35→21:05)
--- NOTE | 2016-12-04 12:59 | PN ---
Subjective - Subjective Service Type: 99029 Hosp care 15 min low complexity Subjective: Patient has been calm, cooperative and going to groups, participating as recommended. She continues to complain of PTSD related symptoms of easy startle and dissociative reactions to ordinary stimuli. As example, she reports that when staff enter her room to notify her of a phone call she jumps out of bed and wants to hide in a closet and put a pen to her throat to kill herself. She denies SI in this setting but endorses bluntly that she will hang herself in her cell if sent back to detention. Objective - Appearance Appearance: Obese Dysmorphic Features: No Hygiene: Normal Grooming: Well Kept - Behavior Psychomotor Activities: Abnormal-Decreased Exhibits Abnormal Movement: No - Attitude and Relatedness Attitude and Relatedness: Cooperative Eye Contact: Good - Speech Quality: Unpressured Latencies: Normal Quantity: Appropriate - Mood Patient's Decription of Mood: "Anxious" - Affect Observed Affect: Constricted Affect Consistent with: Dysphoria - Thought Process Patient's Thought Process: Coherent Thought Content: Yes Suicidal Planning, No Passive Wish, No Homicidal Ideation, No Paranoid Ideation - Sensorium Experiencing Hallucinations: No, Sensorium is Clear Type of Hallucinations: Visual: No, Auditory: No, Command: No - Level of Consciousness Level of Consciousness: Alert Orientation: Yes Intact, Yes Orientated to Time, Yes Orientated to Place, Yes Orientated to Person - Impulse Control Impulse Control: Tenuous - Insight and Judgement Insight and Judgement: Fair - Group Participation Particating in Group Activities: Yes - Medication Management Medication Management Adherence: Yes Assessment - Assessment Merits Inpatient Hospitalization: For Immediate Safety, For Stabilization Inpatient DSM-IV Dx: MDD, recurrent, severe without psychotic features Clinical Impression: 41 y.o. , white female with a history of HIV, diabetes and multiple other medical comorbidities, as well as recurrent depression, cocaine abuse and borderline PD, who was transferred from the Hospitalist service following an intentional ingestion of roughly 75 antihypertensive pills in a suicide attempt. Plan - Plan Treatment Plan: Name: RICCO DIANA Birthdate: 1975 [id number] The patient is severely depressed and likely needing longer term treatment than we can provide. She is receiving scheduled venlafaxine and prn clonazepam. Will initiate transfer to [facility]. In meantime will check CD4 count and viral load and consider resuming antiretrovirals. Continued Medication Management: Continue Outpt Medication Medications: Current Medications Acetaminophen (Tylenol Tab*) 650 mg PO Q4H PRN PRN Reason: for pain; or Temp >101 F Last Admin: 12/03/16 12:08 Dose: 650 mg Al Hydrox/Mg Hydrox/Simethicone (Maalox Plus*) 30 ml PO Q4H PRN PRN Reason: INDIGESTION Albuterol (Ventolin Hfa Inhaler*) 2 puff INH Q6H PRN PRN Reason: SOB/WHEEZING Last Admin: 12/02/16 01:04 Dose: 2 puff Aspirin (Aspirin Low Dose Tab*) 81 mg PO DAILY [facility] Last Admin: 12/04/16 08:31 Dose: 81 mg Atorvastatin Calcium (Lipitor*) 20 mg PO 1700 [facility] Last Admin: 12/03/16 16:39 Dose: 20 mg Clonazepam (Klonopin Tab(*)) 1 mg PO BID PRN PRN Reason: AGITATION/ANXIETY/INSOMNIA Last Admin: 12/04/16 08:35 Dose: 1 mg Device (Nicotine Mouth Piece*) 1 each INH .[facility] Last Admin: 12/01/16 11:10 Dose: 1 each Dextrose (D50w Syringe 50 Ml*) 12.5 gm IV PUSH .FOR FS < 60 - SS PRN PRN Reason: FS < 60 Enalapril Maleate (Vasotec Tab*) 5 mg PO DAILY [facility] Last Admin: 12/04/16 08:31 Dose: 5 mg Hydrochlorothiazide (Hydrodiuril Tab*) 12.5 mg PO DAILY [facility] Last Admin: 12/04/16 08:29 Dose: Not Given Insulin Human Lispro (Humalog*) 0 units SUBCUT AC [facility] PRN Reason: Protocol Last Admin: 12/04/16 12:27 Dose: Not Given Levothyroxine Sodium (Synthroid Tab*) 100 mcg PO DAILY@0600 [facility] Last Admin: 12/04/16 08:31 Dose: 100 mcg Magnesium Hydroxide (Milk Of Magnesia Liq*) 30 ml PO Q6H PRN PRN Reason: CONSTIPATION Metformin HCl (Glucophage*) 500 mg PO 0800,1700 [facility] Last Admin: 12/04/16 08:31 Dose: 500 mg Metoprolol Succinate (Toprol Xl Tab*) 100 mg PO DAILY [facility] Last Admin: 12/04/16 08:32 Dose: 100 mg Multivitamins/Minerals (Theragran/Minerals Tab*) 1 tab PO DAILY [facility] Last Admin: 12/04/16 08:32 Dose: 1 tab Nicotine (Nicotine Inhaler*) 10 mg INH Q2H PRN PRN Reason: CRAVING Last Admin: 12/01/16 11:12 Dose: 10 mg Nicotine Polacrilex (Nicotine Gum*) 2 mg PO Q2H PRN PRN Reason: CRAVING Oxycodone HCl (Roxycodone Tab*) 5 mg PO Q8H PRN PRN Reason: PAIN Last Admin: 12/04/16 08:33 Dose: 5 mg Oxycodone/Acetaminophen (Percocet 5/325 Tab*) 1 tab PO Q8H PRN PRN Reason: PAIN Last Admin: 12/04/16 08:33 Dose: 1 tab Venlafaxine HCl (Effexor Xr Cap*) 150 mg PO DAILY [facility] Last Admin: 12/04/16 08:32 Dose: 150 mg - Discharge Plan Discharge Plan: Consider Longer Term Tx
[2016-12-04] MEDS: Atorvastatin* 20 MG TAB PO SCH (17:18)
[2016-12-04] MEDS: Acetaminophen TAB* 325 MG PO PRN (23:33)
[2016-12-05 07:54] VITALS: BP 112/67
[2016-12-05] MEDS: Insulin LISPRO* 1 UNITS UNIT SUBCUT SCH ×3 (08:03→16:59)
[2016-12-05] MEDS: oxyCODONE TAB* 5 MG TAB PO PRN ×2 (08:21→16:27)
[2016-12-05] MEDS: clonazePAM TAB(*) 1 MG PO PRN ×2 (08:21→15:09)
[2016-12-05] MEDS: Venlafaxine EXT RELEASE CAP* 75 MG PO SCH (08:22)
[2016-12-05] MEDS: Metoprolol Succinate XL TAB* 100 MG PO SCH (08:22)
[2016-12-05] MEDS: Enalapril TAB* 5 MG PO SCH (08:22)
[2016-12-05] MEDS: Levothyroxine TAB* 100 MCG TAB PO SCH (08:22)
[2016-12-05] MEDS: Aspirin Low Dose CHEW TAB* 81 MG PO SCH (08:22)
[2016-12-05] MEDS: metFORMIN* 500 MG TAB PO SCH ×2 (08:23→16:26)
[2016-12-05] MEDS: Multivitamins/Minerals TAB PO SCH (08:24)
[2016-12-05] MEDS: Hydrochlorothiazide TAB* 25 MG PO SCH (08:35)
[2016-12-05] MEDS: oxyCODONE/Acetamin 5/325 MG* TAB PO PRN (11:35)
[2016-12-05] MEDS: Atorvastatin* 20 MG TAB PO SCH (16:27)
[2016-12-05] MEDS ORDERED: hydrOXYzine HCL TAB* 50 MG PO PRN (16:31)
[2016-12-05] MEDS ORDERED: Diazepam TAB(*) 10 MG PO ONE (16:56)
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
[2016-12-06 19:49] LABS: % CD3 77 % (58-86); % CD4 15 % (32-64); % CD8 61 % (13-40); Absolute CD45 Count 2.36 thou/mcL (0.82-2.84)
== END 2016-12-05 19:35 | DRG 755 ==
LOC: BSU 15:24
PROVIDERS: ADMIT Psychiatry & Neurology Psychiatry; ATTEND Psychiatry & Neurology Psychiatry
DX: F43.10 Post-traumatic stress disorder, unspecified (principal); I10 Essential (primary) hypertension; F12.90 Cannabis use, unspecified, uncomplicated; F60.3 Borderline personality disorder; E78.5 Hyperlipidemia, unspecified; E11.9 Type 2 diabetes mellitus without complications; E03.9 Hypothyroidism, unspecified; Z21 Asymptomatic human immunodeficiency virus [HIV] infection status; G47.33 Obstructive sleep apnea (adult) (pediatric); G89.29 Other chronic pain; E66.9 Obesity, unspecified; Z68.27 Body mass index [BMI] 27.0-27.9, adult; Z79.82 Long term (current) use of aspirin; Z79.4 Long term (current) use of insulin; Z62.810 Personal history of physical and sexual abuse in childhood; F17.210 Nicotine dependence, cigarettes, uncomplicated; F14.94 Cocaine use, unspecified with cocaine-induced mood disorder
CPT/HCPCS: 86359; 86360; 87536; 99222; 99231; 99238; A9270-GY

== ENCOUNTER → 2017-11-30 00:23 | Emergency (ER) | payer OTHER ==
[~2017-11-30 00:23] MED LIST: Cephalexin CAP* 500 MG PO ONE; Charcoal ACTIVATED* 25 GM/120 ML BTL PO ONE; NS 0.9% 1000 ML* 1,000 ML IV ONE; Sulfamethox/Trimethoprim DS 800/160* TAB PO SCH; clonazePAM TAB(*) 1 MG PO ONE
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
[2017-11-30 01:25] LABS: ABS Basophils 0.1 10^3/ul (0-0.2); ABS Eosinophils 0.1 10^3/ul (0-0.6); ABS Monocytes 0.7 10^3/ul (0-0.8); ABS Nucleated RBC 0 10^3/ul; Eosinophil % 0.8 % (0-6); Hematocrit 36 % (35-47); Hemoglobin 12.6 g/dl (12.0-16.0); Lymphocyte % 22.6 % (25-47); Mean Corpuscular HGB Conc 35 g/dl (31-36); Mean Corpuscular Hemoglobin 33 pg (27-31); Mean Corpuscular Volume 95 fL (80-97); Mean Platelet Volume 7.4 um3 (7.4-10.4); Nucleated Red Blood Cells % 0; Platelet Count 301 10^3/ul (150-450); Red Blood Count 3.82 10^6/ul (4.00-5.40); Red Cell Distribution Width 13 % (10.5-15); White Blood Count 8.8 10^3/ul (3.5-10.8)
[2017-11-30 01:42] LABS: EGFR Non-African American 69.6 (>60)
[2017-11-30 02:18] LABS: Urine Appearance Cloudy; Urine Blood 1+ (Negative); Urine Color Yellow; Urine Ketones Negative (Negative); Urine Protein 2+(100 mg/dL) (Negative); Urine Red Blood Cell 2+(6-10/hpf) (Absent); Urine Urobilinogen Negative (Negative); Urine White Blood Cell 3+(>20/hpf) (Absent)
--- NOTE | 2017-11-30 04:41 | ED ---
Re-Evaluation - Re-Evaluation 1 Re-Evaluation Time: 03:30 Change: Unchanged Comment: Patient sleeping, but easily arousable. Labs and EKG unremarkable other than lactic of 2.1. Second Eval Change: Unchanged Comment: Lactic is now normal. Labs show signs of UTI pt is already started on bactrim yesterday, will continue that here. Course/Dx - Course Course Of Treatment: Poison control called and patient discussed with Desi. Desi recommended adding lactic acid, EKG to normal labs and the minimal 6 hour observation, with longer observation if symptomatic. Also recommended activated charcoal now, and benzodiazepines for any agitation. 03:31 second conversation with Desi of poison control. After discussing EKG, vital signs, labs and recommended repeat lactic after hydration to make sure lactic had return to normal limits, and to continue 6 hours of observation. - Diagnoses Provider Diagnoses: Overdose, Suicidal ideation, UTI (urinary tract infection) Discharge - Sign-Out/Discharge Documenting (check all that apply): Receiving Sign-Out Signing out patient TO: Matt Powell Receiving patient FROM: Naresh Alvarez - Discharge Plan Referrals: No Primary Care Phys,NOPCP [Primary Care Provider] -
--- OUTSIDE RECORDS SUMMARY | 2017-11-30 06:07 | XMS REPORT ---
:1975 External Reference #:[id number] Author Organization [employer] Address [address] [place] [address] Phone [phone] Care Team Providers Name Role Phone Tarah Hopkins NP Primary Care Physician Unavailable Payers Type Date Identification Numbers Payment Provider Subscriber Commercial Effective: Policy Number: [id number] [employer] Danielle Marie 2016 Medicaid PayID: [id number] [address] [place] [id number] Problems Date Description Provider Status Onset: 01/12/2012 Human immunodeficiency virus type 2 Adenike Quispe M.D. Active Onset: 01/12/2012 Neurosis Naresh Aguirre M.D. Active Onset: 01/12/2012 Chronic pain syndrome Adenike Quispe M.D. 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 Cigarette Use current cigarette smoker Cigarette Use Current Cigarette Smoker 1 Pack Daily Cigarette Use Pack Years - 04 ETOH Use Denies alcohol use Smoking Patient is a current smoker, smokes every day Recreational Drug Use Former Drug User Daily Caffeine Consumes on average 2 cups of regular coffee per day Exercise Type/Frequency Exercises sporadically Allergies, Adverse Reactions, Alerts Date Description Reaction Status Severity Comments 01/11/2012 NKDA active Medications Medication Date Status Form Strength Qnty SIG Indications Ordering Provider Metoprolol Tartrate Active Tablets 100mg 1 by Unknown /0000 mouth twice a day Aspirin Active Tablets 81mg 1 by Unknown /0000 DR mouth every day Metformin HCL Active Tablets 500mg 1 by Unknown /0000 mouth once a day Atorvastatin Calcium Active Tablets 20mg take 1 Unknown /0000 tablet at bedtime Enalapril Maleate Active Tablets 5mg Take 1 Unknown /0000 Tablet By Mouth Every Day Fenofibrate Active Tablets 160mg 1 by Unknown /0000 mouth every day Descovy Active Tablets 200-25mg 30tab 1 by Juan /0000 s mouth D. every [place], day M.D. Prezcobix Active Tablets 800-150mg 30tab one by Juan /0000 s mouth D. once [place], daily M.D. Hydrochlorothiazide 01/15 Hx Tablets 12.5mg 60tab 1 po qd s Jose Enrique - M.D. 11/07 Percocet 01/10 Hx Tablets 10-325mg 20tab 1 tab po 079.53 s rosi Quispe, - day if M.D. 11/07 Truvada Hx Tablets 200-300mg 23tab 1 po Unknown /0000 s every - day 11/15 Prezista Hx Tablets 800mg once Unknown /0000 daily - with 11/15 Norvir Hx Capsules 100mg 1 po qd Unknown /0000 - 11/15 Hydrochlorothiazide Hx Tablets 90tab 1 po qd Unknown /0000 s - 01/15 Effexor XR Hx Caps ER 30cap 1 po qd Unknown /0000 24HR s - 11/07 Seroquel Hx Tablets 30tab 1 po qpm Unknown /0000 s - 11/07 Nitroglycerin Hx Tablets 0.4mg 1 sl Unknown /0000 Sub q5mins - x3 as 11/15 for chest pain Vital Signs Date Vital Result Comment 11/16/2017 Height 64.50 inches 5'4.50" Weight 186.50 lb Heart Rate 72 /min BP Systolic Sitting 150 mmHg BP Diastolic Sitting 90 mmHg Respiratory Rate 14 /min Body Temperature 98.2 F BMI (Body Mass Index) 31.5 kg/m2 01/11/2012 Height 64.50 inches 5'4.50" Weight 167.00 lb Heart Rate 100 /min BP Systolic Sitting 130 mmHg BP Diastolic Sitting 100 mmHg BMI (Body Mass Index) 28.2 kg/m2 Results Test Date Test Result H/L Range Note Drug Abuse 20 Urine 01/11/2012 Urine Ampetamines Negative ng/mL () 1 Urine Barbiturates Negative ng/mL () 2 Urine Benzodiazepines Presumptive Posi <SEE NOTE> ng/mL () 3 Urine Cocaine Negative ng/mL () 4 Urine Methadone Negative ng/mL () 5 Urine Opiates Negative ng/mL () 6 Urine Phencyclidine Negative ng/mL Cutoff: 25 Urine Propoxyphene Negative ng/mL () 7 Urine Tetrahydrocannabinol Negative ng/mL Cutoff: 20 8 Urine Opiates Screen Negative () 9 Urine Codeine By GC/MS Negative ng/mL () 10 Urine Hydrocodone By GC/MS Negative ng/mL () 11 Urine Hydromophone By GC/MS Negative ng/mL () 12 Urine Morphine By GC/MS Negative ng/mL () 13 Urine Oxycodone By GC/MS Negative ng/mL () 14 Urine Opiates Interpretation Negative. () 15 Benzodiazepine 01/11/2012 Benzodiazepine Screen Presumptive Posi () 16 Confirm,Urine <SEE NOTE> Lorazepam By GC/MS Negative ng/mL () 17 Nordiazepam By GC/MS Negative ng/mL () 18 Oxazepam By GC/MS 164 ng/mL () 19 Temazepam By GC/MS 119 ng/mL () 20 Tq-Gsuuy-Enmbxtwnld By GC/MS Negative ng/mL () 21 4-JQ-Ywyveohdrh By GC/MS Negative ng/mL () 22 6-KJ-Kcbuksllhqycr By GC/MS Negative ng/mL Cutoff: 50 Alpha Oh-Alprazolam By GC/MS Negative ng/mL () 23 Alpha Oh-Triazolam By GC/MS Negative ng/mL () 24 Benzodiazepines Interpretation Positive. () 25 1 -- REFERENCE VALUE -- Cutoff: 500 2 -- REFERENCE VALUE -- Cutoff: 200 3 Presumptive Positive Drug Confirmation ordered by reflex. Refer to confirmation results to follow for the definitive results. -- REFERENCE VALUE -- Cutoff: 200 4 -- REFERENCE VALUE -- Cutoff: 300 5 -- REFERENCE VALUE -- Cutoff: 300 6 -- REFERENCE VALUE -- Cutoff: 300 7 -- REFERENCE VALUE -- Cutoff: 300 8 This report is intended for use in clinical monitoring or management of patients. It is not intended for use in employment-related testing. Test Performed by: [address] [address] Broke Beater Machine Operator: Bird Calix III, M.D. 9 -- REFERENCE VALUE -- Cutoff: 300 10 -- REFERENCE VALUE -- Cutoff: 100 11 -- REFERENCE VALUE -- Cutoff: 100 12 -- REFERENCE VALUE -- Cutoff: 100 13 -- REFERENCE VALUE -- Cutoff: 100 14 -- REFERENCE VALUE -- Cutoff: 100 15 This report is intended for use in clinical monitoring and management of patients. It is not intended for use in employment-related testing. Test Performed by: [place] [address] [employer] Be[employer] Machine Operator: Bird Calix III, M.D. 16 Presumptive Positive -- REFERENCE VALUE -- Cutoff: 200 17 -- REFERENCE VALUE -- Cutoff: 100 18 -- REFERENCE VALUE -- Cutoff: 100 19 -- REFERENCE VALUE -- Cutoff: 100 20 -- REFERENCE VALUE -- Cutoff: 100 21 -- REFERENCE VALUE -- Cutoff: 100 22 -- REFERENCE VALUE -- Cutoff: 100 23 -- REFERENCE VALUE -- Cutoff: 100 24 -- REFERENCE VALUE -- Cutoff: 100 25 This report is intended for use in clinical monitoring and management of patients. It is not intended for use in employment-related testing. Test Performed by: [place] [address] [employer]ke Be[employer] Machine Operator: Bird Calix III, M.D. Procedures Date CPT Code Description Status 02/02/2015 Diabetic Retinal Eye Exam Completed 10/11/2014 92022 EKG, Interpretation Only Completed Encounters Type Date Location Provider CPT E/M Dx Office Visit 11/29/2016 [place] [facility] Watson [address] R41.0 11:42a [facility] T44.7x2A I10 E11.9 Office Visit 11/28/2016 11:41a Mark Romano [address] T44.7x2A [facility] H[facility] D.O. R41.0 I10 Office Visit 11/28/2016 11:40a [place] [address] R41.0 Hospitalists D.O. T44.7x2A I10 E11.9 Office Visit 11/27/2016 11:39a [facility] Ximena Jones, [address] T44.7x2A Assoc, Hospitalists DCandiceOCandice I10 E11.9 Office Visit 10/11/2014 11:02a [facility] [place], [address] 786.50 [facility] Hospitalists Mario 272.4 042 401.9 Office Visit 01/11/2012 1:40p [facility] Adenike Quispe M.D. [address] 079.53 [facility] 338.4 Plan of Care Future Appointment(s):12/17/2017 1:20 pm - Juan Lucas M.D. at [facility] Rvajgrsu08/29/2018 - Juan Lucas M.D.Z21 Asymptomatic human immunodeficiency virus infection statusFollow up:1 [id number] Other extermination supervisor (current) drug [id number] Pain in left lower legReferral:[facility], Pain/Clinic/CTRM79.661 Pain in right lower leg
[2017-11-30 09:13] VITALS: BP 142/100
--- NOTE | 2017-11-30 12:19 | ED ---
Progress - Progress Note Progress Note: Pt will be discharged with a diagnosis of substance (cocaine) induced mood disorder Re-Evaluation - Re-Evaluation Second Eval Change: Unchanged Course/Dx - Course Course Of Treatment: Dr. Dotson discharged the pt with a diagnosis of substance ( cocaine) induced mood disorder - Diagnoses Provider Diagnoses: Cocaine-induced mood disorder, Substance induced mood disorder Discharge - Sign-Out/Discharge Documenting (check all that apply): Patient Departure - Discharge, Receiving Sign-Out Receiving patient FROM: Matt Powell - Discharge Plan Condition: Stable Disposition: HOME Referrals: No Primary Care Phys,NOPCP [Medical Doctor] - Additional Instructions: Per completion of a mental health evaluation, you are cleared for release and do not require inpatient psychiatric hospitalization at this time. Please go to nearest emergency room or call 911 if safety concerns arise or condition worsens. [facility]........[phone] Suicide Prevention and Crisis Services........................[phone] National Suicide Prevention Lifeline............................202-082-HRUC ( [phone]) [facility].......................[phone] Alcoholics Anonymous...............................................[phone] [facility]..............[phone] [place] [employer]..............................................[phone]
--- NOTE | 2017-12-03 06:39 | PN ---
Progress Note - Progress Note Date of Service: 12/03/17 Note: Patient's urine culture grew Escherichia coli greater than 100,000. Patient given Bactrim in the ED which is resistant to. We will place on Keflex 500mg twice a day 7 days. sent prescription to pharmacy. tried to call patient and not accepting phone calls. sent letter informing of medication change.
== END | disposition home or self-care (01) ==
LOC: ED 00:23
DX: F14.14 Cocaine abuse with cocaine-induced mood disorder (principal); T42.6X2A Poisoning by other antiepileptic and sedative-hypnotic drugs, intentional self-harm, initial encounter; T48.1X2A Poisoning by skeletal muscle relaxants [neuromuscular blocking agents], intentional self-harm, initial encounter; Y92.199 Unspecified place in other specified residential institution as the place of occurrence of the external cause; R45.851 Suicidal ideations; N39.0 Urinary tract infection, site not specified; B96.20 Unspecified Escherichia coli [E. coli] as the cause of diseases classified elsewhere; F17.210 Nicotine dependence, cigarettes, uncomplicated; E11.9 Type 2 diabetes mellitus without complications; E78.5 Hyperlipidemia, unspecified; I10 Essential (primary) hypertension; E03.9 Hypothyroidism, unspecified; F41.9 Anxiety disorder, unspecified; Z21 Asymptomatic human immunodeficiency virus [HIV] infection status; Z79.84 Long term (current) use of oral hypoglycemic drugs; Z79.899 Other long term (current) drug therapy
CPT/HCPCS: 36415; 80053; 80307; 80320; 80329; 81003; 81015; 83605; 84443; 84702; 85025; 87077; 87086; 87186; 93005; 96360; 99285; A9270-GY; G0480